=== PATIENT | male | born 1950 | race Caucasian/White ===

== ENCOUNTER 2017-02-12 09:22 | Emergency (ER) | payer MEDICARE, OTHER, MEDICAID ==
[2017-02-12 09:29] VITALS: BP 149/79
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
[2017-02-12] MEDS ORDERED: Diphtheria,Pertussis(Acell),Tetanus Vaccine 0.5 ML SDV IM ONE (10:56)
== END 2017-02-12 11:55 | disposition home or self-care (01) ==
LOC: LL.ED 09:22
DX: S00.83XA Contusion of other part of head, initial encounter (principal); J44.9 Chronic obstructive pulmonary disease, unspecified; F41.8 Other specified anxiety disorders; M15.0 Primary generalized (osteo)arthritis; E11.9 Type 2 diabetes mellitus without complications; I11.0 Hypertensive heart disease with heart failure; M25.561 Pain in right knee; I25.10 Atherosclerotic heart disease of native coronary artery without angina pectoris; I50.9 Heart failure, unspecified; E78.00 Pure hypercholesterolemia, unspecified; J45.909 Unspecified asthma, uncomplicated; E66.9 Obesity, unspecified; Z87.891 Personal history of nicotine dependence; Z98.890 Other specified postprocedural states; Z88.8 Allergy status to other drugs, medicaments and biological substances; Z79.82 Long term (current) use of aspirin; Z79.899 Other long term (current) drug therapy; W19.XXXA Unspecified fall, initial encounter; Y92.210 Daycare center as the place of occurrence of the external cause; Z23 Encounter for immunization
CPT/HCPCS: 71020; 73090-LT; 73562-RT; 90471; 90715; 99283; 99284

== ENCOUNTER 2018-12-12 20:25 | Emergency (ER) | payer OTHER, MEDICARE, MEDICAID ==
[2018-12-12] MEDS ORDERED: Sodium Chloride 0.9% 10 ML Syringe FLUSH PRN (20:51)
[2018-12-12 21:29] LABS: CHLORIDE,CL 105 mmol/L (98-107); SODIUM,NA 139 mmol/L (136-145)
[2018-12-12] MEDS ORDERED: Iopamidol 755 Mg/ML 100 ML Bottle IVPUSH ONE (22:06)
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
[2018-12-13 00:47] VITALS: BP 161/76
== END 2018-12-13 01:15 ==
LOC: LL.ED 20:25
DX: R06.02 Shortness of breath (principal); R14.0 Abdominal distension (gaseous); R60.0 Localized edema; R63.5 Abnormal weight gain; I25.10 Atherosclerotic heart disease of native coronary artery without angina pectoris; E78.00 Pure hypercholesterolemia, unspecified; I50.9 Heart failure, unspecified; J44.9 Chronic obstructive pulmonary disease, unspecified; Z79.82 Long term (current) use of aspirin; Z79.899 Other long term (current) drug therapy; Z79.4 Long term (current) use of insulin
CPT/HCPCS: 36000; 36415; 71046; 71275; 74019; 80053; 82550; 82553; 83605; 83735; 83880; 84443; 84484; 85025; 85379; 85610; 85730; 93005; 99285; Q9967

== ENCOUNTER 2018-12-27 21:44 | Emergency (ER) | payer MEDICARE, OTHER, MEDICAID ==
[2018-12-27] MEDS ORDERED: Pantoprazole 40 MG Vial IVPUSH ONE (22:11)
[2018-12-27] MEDS ORDERED: Famotidine 20 MG/2 ML SDV IVPUSH ONE (22:11)
[2018-12-27] MEDS ORDERED: Lactated Ringers 1,000 ML IV ONE (22:11)
--- NOTE | 2018-12-27 22:22 | EDM.PDOC ---
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 4,000 units 12/27/18 23:30 12/27/18 23:36 Heparin Sodium IVPUSH 12/27/18 23:31 4,000 units ONETIME ONE Administration Pantoprazole Sodium 40 mg 12/27/18 22:11 12/27/18 22:50 Protonix Iv IVPUSH 12/27/18 22:12 40 mg ONETIME ONE Administration Ticagrelor 180 mg 12/27/18 23:30 12/27/18 23:36 Brilinta PO 12/27/18 23:31 180 mg ONETIME ONE Administration - Radiology Interpretation Free Text/Narrative:: 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 Acute abdominal x-rays shows status post lumbar fixation and TENS unit placement with moderate osteoarthritic changes, moderate cardiomegaly, moderate COPD, mild centralized CHF and status post left hip TEP with no pulmonary infiltrates, pneumothorax, etc. Moderate diffuse stool with no fluid levels, free air, ileus, or obstruction Telephone consultation at 23:30 hours with the radiology department at with preliminary report of CT of the head without contrast. No acute changes noted. CT Results Date: 12/27/18 CT Results Time: 23:30 Departure - Departure Time of Disposition: 01:05 Disposition: DC/Tfer to Acute Hospital 02 Condition: Fair Clinical Impression: Mixed anxiety depressive disorder, HTN, Benign hypertension, COPD, Moderate chronic obstructive pulmonary disease, D-dimer, elevated Osteoarthritis Qualifiers: Osteoarthritis location: multiple joints Osteoarthritis type: primary Qualified Code(s): M15.0 - Primary generalized (osteo)arthritis Diabetes mellitus Qualifiers: Diabetes mellitus type: type 2 Diabetes mellitus manager intermediate insulin use: without [place] [facility] use Diabetes mellitus complication status: without complication Qualified Code(s): E11.9 - Type 2 diabetes mellitus without complications Hypertension Qualifiers: Hypertension type: essential hypertension Qualified Code(s): I10 - Essential ( primary) hypertension Atrial fibrillation Qualifiers: Atrial fibrillation type: unspecified Qualified Code(s): I48.91 - Unspecified atrial fibrillation CHF (congestive heart failure) Qualifiers: Heart failure type: combined systolic and diastolic Heart failure chronicity: acute on chronic Qualified Code(s): I50.43 - Acute on chronic combined systolic (congestive) and diastolic (congestive) heart failure Renal failure, acute Qualifiers: Acute renal failure type: unspecified Qualified Code(s): N17.9 - Acute kidney failure, unspecified - Discharge Information *PRESCRIPTION DRUG MONITORING PROGRAM REVIEWED*: Not Applicable *COPY OF PRESCRIPTION DRUG MONITORING REPORT IN PATIENT YOLANDA: Not Applicable Referrals: Margret Marshall PA-C [Primary Care Provider] - Forms: ED Department Discharge, Interfacility Transfer EMTALA - Problem List & Annotations (1) CHF (congestive heart failure) SNOMED Code(s): 91113155 Code(s): I50.9 - HEART FAILURE, UNSPECIFIED Status: Acute Priority: High Current Visit: Yes Onset Date: 12/27/18 Annotation/Comment:: Exacerbation of his previous chronic CHF with current renal failure. No chest pain or anginal type symptoms. Chest pain protocol not initiated initially secondary to absence of anginal symptoms, however ASA, Brilinta, and IV heparin under non-STEMI protocol initiated once blood work results were obtained. Telephone consultation at 23:[address] Pearson, hospitalist at , who does accept the patient for direct admission, with no further treatment recommendations given. Ambulance transfer with corporate officer accompaniment. Note troponin I elevation and BNP elevation with recent echocardiogram on 12/13/18 as above. Probable cardiology consultation for possible acute AL. Consider heart catheterization once his renal status has improved. High-dose IV Lasix therapy was given in the emergency room. Note mild thrombocytopenia. Qualifiers: Heart failure type: combined systolic and diastolic Heart failure chronicity: acute on chronic Qualified Code(s): I50.43 - Acute on chronic combined systolic (congestive) and diastolic (congestive) heart failure (2) Atrial fibrillation SNOMED Code(s): 20208866 Code(s): I48.91 - UNSPECIFIED ATRIAL FIBRILLATION Status: Acute Priority : High Current Visit: Yes Onset Date: 12/27/18 Annotation/Comment:: Newly diagnosed with history of recent first-degree AV block, PVCs, and bifascicular bundle branch block. IV heparin started as above. Qualifiers: Atrial fibrillation type: unspecified Qualified Code(s): I48.91 - Unspecified atrial fibrillation (3) Renal failure, acute SNOMED Code(s): 62026429 Code(s): N17.9 - ACUTE KIDNEY FAILURE, UNSPECIFIED Status: Acute Priority : High Current Visit: Yes Onset Date: 12/28/18 Annotation/Comment:: History of diabetic nephropathy with recent hospitalization at [facility] as above. Acute renal failure at this time. Consider nephrology consultation. Qualifiers: Acute renal failure type: unspecified Qualified Code(s): N17.9 - Acute kidney failure, unspecified (4) COPD, Moderate chronic obstructive pulmonary disease SNOMED Code(s): 793611476 Code(s): J44.9 - CHRONIC OBSTRUCTIVE PULMONARY DISEASE, UNSPECIFIED Status : Chronic Priority: Medium Current Visit: Yes Annotation/Comment:: Stable by history with no recent history of fever, however mild recent URI and bronchitic-type symptoms. (5) Diabetes mellitus type 2 SNOMED Code(s): 07962691 Code(s): E11.9 - TYPE 2 DIABETES MELLITUS WITHOUT COMPLICATIONS Status: Chronic Priority: Medium Current Visit: Yes Annotation/Comment:: Stable by history, however note progressive renal insufficiency and acute renal failure as above, however. Recent glycosylated hemoglobin at [facility] in the 8s. (6) Osteoarthritis SNOMED Code(s): 721283969 Code(s): M19.90 - UNSPECIFIED OSTEOARTHRITIS, UNSPECIFIED SITE Status: Chronic Priority: Medium Current Visit: Yes Annotation/Comment:: His osteoarthritis and chronic low back pain are otherwise stable by history with current disability as above Qualifiers: Osteoarthritis location: multiple joints Osteoarthritis type: primary Qualified Code(s): M15.0 - Primary generalized (osteo)arthritis (7) Hypertension SNOMED Code(s): 98304520 Code(s): I10 - ESSENTIAL (PRIMARY) HYPERTENSION Status: Chronic Priority : Medium Current Visit: Yes Annotation/Comment:: Variable blood pressure in the emergency room. Continue to observe closely by his accepting and regular providers Qualifiers: Hypertension type: essential hypertension Qualified Code(s): I10 - Essential (primary) hypertension (8) Mixed anxiety depressive disorder SNOMED Code(s): 794646564 Code(s): F41.8 - OTHER SPECIFIED ANXIETY DISORDERS Status: Chronic Priority: Medium Current Visit: No Annotation/Comment:: Stable by history. Note chronic narcotic use secondary to his chronic low back pain with current renal failure and confusion. (9) D-dimer, elevated SNOMED Code(s): 864938704 Code(s): R79.89 - OTHER SPECIFIED ABNORMAL FINDINGS OF BLOOD CHEMISTRY Status: Chronic Priority: High Current Visit: Yes Onset Date: 12/12/18 Annotation/Comment:: Note persistent d-dimer elevation after recent diagnosis on 12/12/18 with negative CTA of the chest. Consider venous Doppler studies of the lower extremities. - Problem List Review Problem List Initiated/Reviewed/Updated: Yes - My Orders Last 24 Hours: My Active Orders 12/27/18 22:11 Peripheral IV Care [RC] . DIRECTED Abdomen Series w Chest 1V [CR] Stat CULTURE URINE [RM] Stat UA W/MICROSCOPIC [URIN] Stat Sodium Chloride 0.9% [Saline Flush] 10 ml FLUSH ASDIRECTED PRN Blood Culture x2 Reflex Set [OM.PC] Urgent Obtain Past Medical Record [OM.PC] Urgent Peripheral IV Insertion Adult [OM.PC] Stat Resuscitation Status Stat 12/27/18 22:15 EKG Documentation Completion [RC] ASDIRECTED 12/27/18 22:20 CULTURE STREP A CONFIRMATION [RM] Stat STREP SCRN A RAPID W CULT CONF [RM] Stat 12/27/18 22:35 CULTURE BLOOD [BC] Stat 12/27/18 22:40 CULTURE BLOOD [BC] Stat 12/27/18 22:50 Head wo Cont [CT] Stat 12/27/18 23:45 Heparin Sodium/D5W [Heparin 25,000 Units in D5W 500 ML] 25,000 units in 500 ml IV TITRATE 12/27/18 Breakfast Nothing Per Oral Diet [DIET] - Assessment/Plan Last 24 Hours: My Active Orders 12/27/18 22:11 Peripheral IV Care [RC] . DIRECTED Abdomen Series w Chest 1V [CR] Stat CULTURE URINE [RM] Stat UA W/MICROSCOPIC [URIN] Stat Sodium Chloride 0.9% [Saline Flush] 10 ml FLUSH ASDIRECTED PRN Blood Culture x2 Reflex Set [OM.PC] Urgent Obtain Past Medical Record [OM.PC] Urgent Peripheral IV Insertion Adult [OM.PC] Stat Resuscitation Status Stat 12/27/18 22:15 EKG Documentation Completion [RC] ASDIRECTED 12/27/18 22:20 CULTURE STREP A CONFIRMATION [RM] Stat STREP SCRN A RAPID W CULT CONF [RM] Stat 12/27/18 22:35 CULTURE BLOOD [BC] Stat 12/27/18 22:40 CULTURE BLOOD [BC] Stat 12/27/18 22:50 Head wo Cont [CT] Stat 12/27/18 23:45 Heparin Sodium/D5W [Heparin 25,000 Units in D5W 500 ML] 25,000 units in 500 ml IV TITRATE 12/27/18 Breakfast Nothing Per Oral Diet [DIET] Assessment:: As above Plan: As above. Extensive precautions were given to the patient and his , who are in agreement with the treatment plan. Ambulance transfer to [place] with corporate officer accompaniment as above.
[2018-12-27] MEDS: Sodium Chloride 0.9% 10 ML Syringe FLUSH PRN ×2 (22:50→23:38)
[2018-12-27 23:27] LABS: CHLORIDE,CL 98 mmol/L (98-107); SODIUM,NA 135 mmol/L (136-145)
[2018-12-27] MEDS ORDERED: Heparin Sodium 5,000 Units/ML Vial IVPUSH ONE (23:30)
[2018-12-27] MEDS ORDERED: Ticagrelor 90 MG Tab PO ONE (23:30)
[2018-12-27] MEDS ORDERED: Aspirin 81 MG Tab.Chew CHEW ONE (23:30)
[2018-12-27] MEDS ORDERED: Furosemide 40 MG/4 ML VIAL IVPUSH ONE (23:35)
[2018-12-27] MEDS ORDERED: Heparin Sodium/D5W 25,000 UNITS/500 ML BAG IV SCH (23:45)
[2018-12-28 00:53] VITALS: BP 98/43
== END 2018-12-28 01:05 ==
LOC: LL.ED 21:44
DX: N17.9 Acute kidney failure, unspecified (principal); I11.0 Hypertensive heart disease with heart failure; I50.9 Heart failure, unspecified; F41.8 Other specified anxiety disorders; J44.9 Chronic obstructive pulmonary disease, unspecified; M15.0 Primary generalized (osteo)arthritis; E11.9 Type 2 diabetes mellitus without complications; I48.91 Unspecified atrial fibrillation; R79.89 Other specified abnormal findings of blood chemistry; Z87.891 Personal history of nicotine dependence; Z79.84 Long term (current) use of oral hypoglycemic drugs; Z79.82 Long term (current) use of aspirin; Z79.899 Other long term (current) drug therapy; Z88.8 Allergy status to other drugs, medicaments and biological substances
CPT/HCPCS: 36415; 70450; 74022; 80053; 82140; 82150; 82550; 82553; 83605; 83690; 83735; 83880; 84443; 84484; 84550; 85025; 85379; 85610; 85730; 87040; 87081; 87430; 87804; 93005; 93010; 96365; 96375; 99284; 99285; A9270-GY; C9113; G0480; J1644; J1940; J3490

== ENCOUNTER 2019-04-18 12:15 | Inpatient (IN) | payer MEDICARE, OTHER, MEDICAID ==
[2019-04-18] MEDS ORDERED: Famotidine 20 MG/2 ML SDV IVPUSH ONE (12:29)
--- NOTE | 2019-04-18 12:29 | EDM.PDOC ---
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 [place] (1.005-1.030) Urine Protein (NEGATIVE) mg/dL Urine Glucose (UA) (NEGATIVE) mg/dL Urine Ketones (NEGATIVE) mg/dL Urine Occult Blood (NEGATIVE) Urine Nitrite (NEGATIVE) Urine Bilirubin (NEGATIVE) Urine Urobilinogen (0.2-1.0) E.U./dL Ur Leukocyte Esterase (NEGATIVE) Urine RBC /HPF Urine WBC /HPF Ur Epithelial Cells /LPF Urine Bacteria (NONE TO FEW) /HPF Meds: Medications Generic Name Dose Route Start Last Admin Trade Name Freq PRN Reason Stop Dose Admin Sodium Chloride 10 ml 04/18/19 12:29 04/18/19 14:58 Saline Flush FLUSH 10 ml ASDIRECTED PRN Administration Keep Vein Open Discontinued Medications Generic Name Dose Route Start Last Admin Trade Name Freq PRN Reason Stop Dose Admin Famotidine 40 mg 04/18/19 12:29 04/18/19 14:15 Pepcid IVPUSH 04/18/19 12:30 40 mg ONETIME ONE Administration Furosemide 60 mg 04/18/19 13:34 04/18/19 14:57 Lasix IVPUSH 04/18/19 13:35 60 mg NOW ONE Administration Insulin Human Regular 10 unit 04/18/19 13:34 04/18/19 14:54 Humulin R IV 04/18/19 13:35 10 unit ONETIME ONE Administration - Radiology Interpretation Free Text/Narrative:: air sampling and monitoring shows 100% normal paced rhythm at 60 to 70s with no extrasystoles or other arrhythmia. Chest x-ray, portable, shows moderate COPD, cardiomegaly, prominence of the aortic arch, and centralized CHF with additional pacemaker noted. No pulmonary infiltrates, pneumothorax, etc. Departure - Departure Time of Disposition: 15:20 Disposition: Admitted As Inpatient 67 Condition: Good Clinical Impression: COPD, Moderate chronic obstructive pulmonary disease, Diabetes mellitus type 2 , D-dimer, elevated, Mixed anxiety depressive disorder, Confusion CHF (congestive heart failure) Qualifiers: Heart failure type: combined systolic and diastolic Heart failure chronicity: acute on chronic Qualified Code(s): I50.43 - Acute on chronic combined systolic (congestive) and diastolic (congestive) heart failure Osteoarthritis Qualifiers: Osteoarthritis location: multiple joints Osteoarthritis type: primary Qualified Code(s): M15.0 - Primary generalized (osteo)arthritis Hypertension Qualifiers: Hypertension type: essential hypertension Qualified Code(s): I10 - Essential ( primary) hypertension Sleep apnea Qualifiers: Sleep apnea type: unspecified type Qualified Code(s): G47.30 - Sleep apnea, unspecified - Discharge Information - Problem List & Annotations (1) Diabetes mellitus SNOMED Code(s): 44314084 Code(s): E11.9 - TYPE 2 DIABETES MELLITUS WITHOUT COMPLICATIONS Status: Acute Priority: High Current Visit: Yes Annotation/Comment:: Patient did require insulin therapy in the past with significant hyperglycemia today. IV Humulin regular insulin initiated in the emergency room. Initiate diabetic teaching during this hospitalization. Glycosylated hemoglobin and lipid panel in the a.m. Weight loss in moderation is still advisable with patient having regained some of his previous weight loss. 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 Diabetes mellitus complication status: with kidney complications Diabetes mellitus complication detail: with chronic kidney disease Chronic kidney disease stage: stage 3 (moderate) Qualified Code(s): E11.22 - Type 2 diabetes mellitus with diabetic chronic kidney disease; N18.3 - Chronic kidney disease, stage 3 (moderate) (2) Osteoarthritis SNOMED Code(s): 735220398 Code(s): M19.90 - UNSPECIFIED OSTEOARTHRITIS, UNSPECIFIED SITE Status: Chronic Priority: Medium Current Visit: Yes Annotation/Comment:: His osteoarthritis, including chronic bilateral shoulder pain and chronic low back pain, are stable by history with current disability as above Qualifiers: Osteoarthritis location: multiple joints Osteoarthritis type: primary Qualified Code(s): M15.0 - Primary generalized (osteo)arthritis (3) Hypertension SNOMED Code(s): 06471775 Code(s): I10 - ESSENTIAL (PRIMARY) HYPERTENSION Status: Chronic Priority : Medium Current Visit: Yes Annotation/Comment:: Blood Pressures under good control in the emergency room. Continue to observe closely during this hospitalization with IV Lasix therapy initiated in the emergency room. Qualifiers: Hypertension type: essential hypertension Qualified Code(s): I10 - Essential (primary) hypertension (4) Mixed anxiety depressive disorder SNOMED Code(s): 198567784 Code(s): F41.8 - OTHER SPECIFIED ANXIETY DISORDERS Status: Chronic Priority: Medium Current Visit: No Annotation/Comment:: Stable by history. Note chronic narcotic use secondary to his chronic low back pain with nonspecific chronic confusion. Continue to observe closely. Note recent ER evaluation and negative CT scan of the head on 12/27/18. (5) CHF (congestive heart failure) SNOMED Code(s): 53608899 Code(s): I50.9 - HEART FAILURE, UNSPECIFIED Status: Acute Priority: High Current Visit: Yes Onset Date: 12/27/18 Annotation/Comment:: Patient has been noncompliant with his Lasix therapy secondary to increased urinary frequency with patient decreasing his dose on his own to 1 tablet by mouth twice a day rather than 2 tablets by mouth twice a day. No chest pain or anginal type symptoms, however initiate standard rule out [place] orders. Note recent pacemaker placement as above. Patient has also had a recent echocardiogram on 12/13/18. Cardiology consultation depending on his clinical course. IV Lasix therapy initiated in the emergency room with medication compliance strongly encouraged. Note mild hyponatremia and LFTs elevation likely secondary to CHF. Qualifiers: Heart failure type: combined systolic and diastolic Heart failure chronicity: acute on chronic Qualified Code(s): I50.43 - Acute on chronic combined systolic (congestive) and diastolic (congestive) heart failure (6) D-dimer, elevated SNOMED Code(s): 799083250 Code(s): R79.89 - OTHER SPECIFIED ABNORMAL FINDINGS OF BLOOD CHEMISTRY Status: Chronic Priority: High Current Visit: Yes Onset Date: 12/12/18 Annotation/Comment:: Note persistent d-dimer elevation after recent diagnosis on 12/12/18 with negative CTA of the chest. Recent negative right leg venous Doppler studies on 02/04/19 as above. (7) Confusion SNOMED Code(s): 337452862 Code(s): R41.0 - DISORIENTATION, UNSPECIFIED Status: Chronic Priority: Medium Current Visit: Yes Annotation/Comment:: Continue observe closely. Chronic in nature. Vitamin B 12 level in the a.m. Note previous negative CT scan of the head on 12/27/18. He has been noncompliant with his CPAP. (8) Sleep apnea SNOMED Code(s): 60035169 Code(s): G47.30 - SLEEP APNEA, UNSPECIFIED Status: Chronic Priority: High Current Visit: Yes Annotation/Comment:: CPAP therapy with his new mask , which he has not yet tried at home, during this hospitalization. Compliance with CPAP therapy strongly encouraged. Further consultation depending on his clinical course. Qualifiers: Sleep apnea type: unspecified type Qualified Code(s): G47.30 - Sleep apnea , unspecified (9) Comfort measures only status SNOMED Code(s): 59263008988926 Code(s): Z51.5 - ENCOUNTER FOR PALLIATIVE CARE Status: Chronic Priority: Medium Current Visit: Yes Onset Date: 04/18/19 Annotation/Comment:: He is requesting comfort/palliative care status at this time. Transfers okay. - Problem List Review Problem List Initiated/Reviewed/Updated: Yes - My Orders Last 24 Hours: My Active Orders 04/18/19 12:15 CULTURE URINE [RM] Routine 04/18/19 12:29 Cardiac Monitoring [RC] . DIRECTED EKG Documentation Completion [RC] ASDIRECTED Oxygen Therapy, ED [RC] PRN Peripheral IV Care [RC] . DIRECTED Pulse Oximetry [RC] CONTINUOUS Up With Assistance [RC] PFP Vital Signs [RC] PFP Chest 1V Frontal [CR] Stat Sodium Chloride 0.9% [Saline Flush] 10 ml FLUSH ASDIRECTED PRN Obtain Past Medical Record [OM.PC] Urgent Peripheral IV Insertion Adult [OM.PC] Stat Resuscitation Status Stat 04/18/19 Breakfast Nothing per Oral Now Diet [DIET] - Assessment/Plan Admission H&P: Please use this note as an admission H&P Last 24 Hours: My Active Orders 04/18/19 12:15 CULTURE URINE [RM] Routine 04/18/19 12:29 Cardiac Monitoring [RC] . DIRECTED EKG Documentation Completion [RC] ASDIRECTED Oxygen Therapy, ED [RC] PRN Peripheral IV Care [RC] . DIRECTED Pulse Oximetry [RC] CONTINUOUS Up With Assistance [RC] PFP Vital Signs [RC] PFP Chest 1V Frontal [CR] Stat Sodium Chloride 0.9% [Saline Flush] 10 ml FLUSH ASDIRECTED PRN Obtain Past Medical Record [OM.PC] Urgent Peripheral IV Insertion Adult [OM.PC] Stat Resuscitation Status Stat 04/18/19 Breakfast Nothing per Oral Now Diet [DIET] Assessment:: As above Plan: As above. Extensive precautions were given to the patient, who is in agreement with the treatment plan. The patient will require about 3-4 days of inpatient/ acute care secondary to multiple health problems as above.
[2019-04-18 13:17] LABS: CHLORIDE,CL 97 mmol/L (98-107); SODIUM,NA 134 mmol/L (136-145)
[2019-04-18] MEDS ORDERED: Insulin Regular, Human 100 Units/ML 3 ML Vial IV ONE (13:34)
[2019-04-18] MEDS ORDERED: Furosemide 40 MG/4 ML VIAL IVPUSH ONE (13:34)
[2019-04-18] MEDS: Sodium Chloride 0.9% 10 ML Syringe FLUSH PRN ×2 (14:58→21:16)
[2019-04-18] MEDS ORDERED: Sodium Chloride 0.9% 10 ML Syringe FLUSH PRN (15:47)
[2019-04-18] MEDS ORDERED: Albuterol 0.083% 2.5 MG/3 ML Neb Soln INH PRN (15:52)
[2019-04-18] MEDS ORDERED: Albuterol/Ipratropium 3.0-0.5 MG/3 ML Neb Soln NEB PRN (15:52)
[2019-04-18] MEDS ORDERED: Gabapentin 300 MG Cap PO PRN (16:15)
[2019-04-18] MEDS: Potassium Chloride 20 MEQ Tab.ER PO SCH (17:24)
[2019-04-18] MEDS: metFORMIN 500 MG Tab PO SCH (17:24)
[2019-04-18] MEDS: Enoxaparin 40 MG/0.4 ML Syringe SUBCUT SCH (17:25)
[2019-04-18] MEDS: Insulin Lispro 100 Units/ML 3 ML Vial SUBCUT SCH ×2 (17:27→21:15)
[2019-04-18] MEDS ORDERED: Insulin Lispro Protamine/Lispro 75-25 100 Units/ML 10 ML Vial SUBCUT SCH (17:30)
[2019-04-18] MEDS: guaiFENesin 600 MG Tab.ER PO SCH (19:55)
[2019-04-18] MEDS: Albuterol/Ipratropium 3.0-0.5 MG/3 ML Neb Soln NEB SCH (19:55)
[2019-04-18] MEDS: Diazepam 5 MG Tab PO SCH (19:55)
[2019-04-18] MEDS: Acetaminophen 325 MG Tab PO PRN (19:55)
[2019-04-18] MEDS: Budesonide 0.5 MG/2 ML Neb Susp NEB SCH (19:55)
[2019-04-18] MEDS: Furosemide 40 MG/4 ML VIAL IVPUSH SCH (21:15)
[2019-04-19] MEDS: Albuterol/Ipratropium 3.0-0.5 MG/3 ML Neb Soln NEB SCH ×4 (03:38→20:08)
[2019-04-19] MEDS: Sodium Chloride 0.9% 10 ML Syringe FLUSH PRN ×3 (03:39→20:03)
[2019-04-19] MEDS: Furosemide 40 MG/4 ML VIAL IVPUSH SCH ×3 (03:59→20:02)
[2019-04-19] MEDS ORDERED: Insulin Lispro Protamine/Lispro 75-25 100 Units/ML 10 ML Vial SUBCUT SCH (07:30)
[2019-04-19] MEDS: Isosorbide Mononitrate 30 MG Tab.ER PO SCH (07:42)
[2019-04-19] MEDS: Pantoprazole 40 MG Tab.CR PO SCH (07:43)
[2019-04-19] MEDS: Folic Acid 1 MG Tab PO SCH (07:43)
[2019-04-19] MEDS: Losartan 50 MG Tab PO SCH (07:43)
[2019-04-19] MEDS: Finasteride 5 MG Tab PO SCH (07:43)
[2019-04-19] MEDS: Potassium Chloride 20 MEQ Tab.ER PO SCH ×3 (07:44→17:21)
[2019-04-19] MEDS: Aspirin 81 MG Tab.EC PO SCH (07:44)
[2019-04-19] MEDS: metFORMIN 500 MG Tab PO SCH ×2 (07:44→17:21)
[2019-04-19] MEDS: DULoxetine 30 MG Cap PO SCH (07:44)
[2019-04-19] MEDS: Tamsulosin 0.4 MG Cap.ER PO SCH (07:45)
[2019-04-19] MEDS: Ferrous Sulfate 325 MG Tab PO SCH (07:45)
[2019-04-19] MEDS: Metoprolol Succinate 25 MG Tab.ER PO SCH (07:45)
[2019-04-19] MEDS: Budesonide 0.5 MG/2 ML Neb Susp NEB SCH ×2 (07:46→20:00)
[2019-04-19] MEDS: Insulin Lispro 100 Units/ML 3 ML Vial SUBCUT SCH (07:48)
[2019-04-19] MEDS ORDERED: Non-Formulary Medication 1 Each (Folic Acid [Folic Acid] 0.8 MG) PO SCH (08:00)
[2019-04-19 08:34] LABS: CHLORIDE,CL 99 mmol/L (98-107); SODIUM,NA 138 mmol/L (136-145)
--- NOTE | 2019-04-19 08:41 | PCM.PN ---
- General Info Date of Service: 04/19/19 Admission Dx/Problem (Free Text): 1. Hyperglycemia with decompensated IDDM 2. CHF 3. Confusion Functional Status: Reports: Pain Controlled, Tolerating Diet, Ambulating, Urinating, Incentive Spirometry. Denies: New Symptoms Pain Score: 0 - Review of Systems General: Reports: No Symptoms. Denies: Fever, Weakness, Fatigue, Malaise, Chills, Night Sweats, Appetite (Good) HEENT: Reports: Glasses. Denies: Dysphasia, Ear Pain, Eye Pain, Headaches, Sinus Congestion, Sore Throat, Rhinitis, Visual Changes Pulmonary: Reports: No Symptoms. Denies: Shortness of Breath, Pleuritic Chest Pain, Cough, Sputum, Hemoptysis, Wheezing Cardiovascular: Reports: Orthopnea, Edema (Improved). Denies: Chest Pain, Palpitations, Dyspnea on Exertion, Lightheadedness Gastrointestinal: Reports: No Symptoms, Other (Normal bowel movement earlier this morning). Denies: Abdominal Pain, Constipation, Decreased Appetite, Diarrhea, Difficulty Swallowing, Flatus, Hematochezia, Melena, Nausea, Vomiting Genitourinary: Reports: No Symptoms. Denies: Dysuria, Frequency, Burning, Pain , Urgency, Hematuria, Retention, Flank Pain Musculoskeletal: Reports: Shoulder Pain (Stable chronic bilateral), Back Pain ( Stable chronic). Denies: Neck Pain, Arm Pain, Leg Pain, Joint Swelling Skin: Reports: Bruising (MildLovenox Sites). Denies: Diaphoresis Neurological: Reports: Confusion (Improved/resolved), Numbness (Stable chronic) , Paresthesia (Stable chronic), Tingling (Stable chronic), Tremors (Stable chronic resting tremor), Difficulty Walking (Stable with patient using left- sided cane). Denies: Dizziness (Resolved), Headache, Weakness Psychiatric: Reports: Confusion (As above). Denies: Depression, Anxiety, Agitation, Cravings, Hallucinations - Patient Data Vitals - Most Recent: Last Vital Signs Temp 36.6 C 04/19/19 08:00 Pulse 80 04/19/19 08:00 Resp 18 04/19/19 08:00 BP 148/75 H 04/19/19 08:00 Pulse Ox 95 04/19/19 08:00 Vital Signs - 24 hr 06/17/19 06/17/19 06/17/19 12:23 12:54 13:08 Temperature [ 36.9 C Oral] Temperature [ Temporal] Pulse, Peripheral Pulse, 60 62 63 Peripheral [ Right Pulse Oximetry] Respiratory 18 15 14 Rate Blood Pressure Blood Pressure 125/56 L 140/55 L [Left Upper Arm ] O2 Sat by Pulse 96 96 Oximetry 04/18/19 04/18/19 04/18/19 13:23 13:45 14:00 Temperature [ Oral] Temperature [ Temporal] Pulse, Peripheral Pulse, 65 64 63 Peripheral [ Right Pulse Oximetry] Respiratory 15 13 14 Rate Blood Pressure Blood Pressure [Left Upper Arm ] O2 Sat by Pulse 97 95 98 Oximetry 04/18/19 04/18/19 04/18/19 14:15 14:30 14:45 Temperature [ Oral] Temperature [ Temporal] Pulse, Peripheral Pulse, 66 68 67 Peripheral [ Right Pulse Oximetry] Respiratory 13 14 14 Rate Blood Pressure Blood Pressure [Left Upper Arm ] O2 Sat by Pulse 97 96 95 Oximetry 04/18/19 04/18/19 04/18/19 15:00 15:07 15:47 Temperature [ Oral] Temperature [ Temporal] Pulse, Peripheral Pulse, 67 87 Peripheral [ Right Pulse Oximetry] Respiratory 14 21 H Rate Blood Pressure Blood Pressure 121/63 [Left Upper Arm ] O2 Sat by Pulse 95 97 96 Oximetry 04/18/19 04/18/19 04/18/19 17:00 18:00 20:00 Temperature [ 36.6 C 36.8 C 36.8 C Oral] Temperature [ Temporal] Pulse, Peripheral Pulse, 61 60 60 Peripheral [ Right Pulse Oximetry] Respiratory 15 17 17 Rate Blood Pressure Blood Pressure 184/89 H 138/105 H 138/105 H [Left Upper Arm ] O2 Sat by Pulse 93 L 93 L 93 L Oximetry 04/18/19 04/19/19 04/19/19 23:57 03:45 07:42 Temperature [ 37.3 C 36.9 C Oral] Temperature [ Temporal] Pulse, Peripheral Pulse, 88 67 Peripheral [ Right Pulse Oximetry] Respiratory 18 15 Rate Blood Pressure 148/75 H Blood Pressure 102/64 123/59 L [Left Upper Arm ] O2 Sat by Pulse 93 L 96 Oximetry 04/19/19 04/19/19 04/19/19 07:43 07:45 08:00 Temperature [ Oral] Temperature [ 36.6 C Temporal] Pulse, 80 Peripheral Pulse, 80 Peripheral [ Right Pulse Oximetry] Respiratory 18 Rate Blood Pressure 148/75 H 148/75 H Blood Pressure 148/75 H [Left Upper Arm ] O2 Sat by Pulse 95 Oximetry Weight - Most Recent: 129.637 kg I&O - Last 24 Hours: Intake & Output 04/18/19 04/19/19 04/19/19 22:59 06:59 14:59 Intake Total 1340 Output Total 1350 250 Balance -10 -250 Imaging Impressions - Last 24 Hours: 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 Lab Results Last 24 Hours: Laboratory Results - last 24 hr 04/18/19 04/18/19 04/18/19 Range/Units 12:15 12:45 12:45 WBC 4.8 (4.0-10.2) K/uL RBC 4.46 (4.33-5.41) M/uL Hgb 14.8 D (13.1-16.8) g/dL Hct 43.5 (39.0-49.0) % MCV 97.5 D (84.0-98.0) fL MCH 33.2 (28.2-33.3) pg MCHC 34.0 (31.7-36.0) g/dL RDW 13.3 (11.2-14.1) % Plt Count 97 L (150-350) K/uL Neut % (Auto) 56.0 (45.0-80.0) % Lymph % (Auto) 30.0 (10.0-50.0) % [place] % (Auto) 10.7 (2.0-14.0) % Eos % (Auto) 2.9 (0.0-5.0) % Baso % (Auto) 0.4 (0.0-2.0) % Neut # (Auto) 2.66 (1.40-7.00) K/uL Lymph # (Auto) 1.43 (0.50-3.50) K/uL [place] # (Auto) 0.51 (0.00-1.00) K/uL Eos # (Auto) 0.14 (0.00-0.50) K/uL Baso # (Auto) 0.02 (0.00-0.20) K/uL PT 10.7 (9.5-12.0) SEC INR 1.0 APTT 30.2 (21.0-31.3) SEC D-Dimer, Quantitative (0-400) ng/mL Sodium (136-145) mmol/L Potassium (3.5-5.1) mmol/L Chloride (98-107) mmol/L Carbon Dioxide (21.0-32.0) mmol/L BUN (7-18) mg/dL Creatinine (0.51-1.17) mg/dL Est Cr Clr Drug Dosing Estimated GFR (MDRD) mL/min Glucose (74-106) mg/dL POC Glucose (65-110) mg/dl Hemoglobin A1c (4.3-5.7) % Lactic Acid (0.4-2.0) mmol/L Uric Acid (2.6-7.2) mg/dL Calcium (8.5-10.1) mg/dL Magnesium (1.8-2.4) mg/dL Iron (50-175) ug/dL TIBC (250-450) ug/dL % Saturation Ferritin (8-388) ng/mL Total Bilirubin (0.2-1.0) mg/dL AST (15-37) U/L ALT (12-78) U/L Alkaline Phosphatase (46-116) IU/L Creatine Kinase (26-308) U/L Creatine Kinase Index (0.0-2.5) % CK-MB (CK-2) (0.00-3.60) ng/mL Troponin I (0.000-0.056) ng/mL NT-Pro-B Natriuret Pep (0-125) pg/mL Total Protein (6.4-8.2) g/dL Albumin (3.4-5.0) g/dL TSH, Ultra Sensitive (0.358-3.740) mIU/mL Specimen Type Urinvoid Urine Color Yellow Urine Appearance Clear Urine pH 5.5 (5.0-9.0) Ur Specific Strang 1.010 (1.005-1.030) Urine Protein Negative (NEGATIVE) mg/dL Urine Glucose (UA) 500 H (NEGATIVE) mg/dL Urine Ketones Negative (NEGATIVE) mg/dL Urine Occult Blood Negative (NEGATIVE) Urine Nitrite Negative (NEGATIVE) Urine Bilirubin Negative (NEGATIVE) Urine Urobilinogen 0.2 (0.2-1.0) E.U./dL Ur Leukocyte Esterase Negative (NEGATIVE) Urine RBC Not seen /HPF Urine WBC 0-5 /HPF Ur Epithelial Cells Rare /LPF Urine Bacteria Rare (NONE TO FEW) /HPF 04/18/19 04/18/19 04/18/19 Range/Units 12:45 12:45 12:45 WBC (4.0-10.2) K/uL RBC (4.33-5.41) M/uL Hgb (13.1-16.8) g/dL Hct (39.0-49.0) % MCV (84.0-98.0) fL MCH (28.2-33.3) pg MCHC (31.7-36.0) g/dL RDW (11.2-14.1) % Plt Count (150-350) K/uL Neut % (Auto) (45.0-80.0) % Lymph % (Auto) (10.0-50.0) % [place] % (Auto) (2.0-14.0) % Eos % (Auto) (0.0-5.0) % Baso % (Auto) (0.0-2.0) % Neut # (Auto) (1.40-7.00) K/uL Lymph # (Auto) (0.50-3.50) K/uL [place] # (Auto) (0.00-1.00) K/uL Eos # (Auto) (0.00-0.50) K/uL Baso # (Auto) (0.00-0.20) K/uL PT (9.5-12.0) SEC INR APTT (21.0-31.3) SEC D-Dimer, Quantitative 800 H (0-400) ng/mL Sodium 134 L (136-145) mmol/L Potassium 4.3 (3.5-5.1) mmol/L Chloride 97 L (98-107) mmol/L Carbon Dioxide 29.8 (21.0-32.0) mmol/L BUN 13 (7-18) mg/dL Creatinine 0.90 (0.51-1.17) mg/dL Est Cr Clr Drug Dosing TNP Estimated GFR (MDRD) > 60 mL/min Glucose 485 H* (74-106) mg/dL POC Glucose (65-110) mg/dl Hemoglobin A1c (4.3-5.7) % Lactic Acid 1.8 (0.4-2.0) mmol/L Uric Acid 3.0 (2.6-7.2) mg/dL Calcium 9.0 (8.5-10.1) mg/dL Magnesium 1.9 (1.8-2.4) mg/dL Iron (50-175) ug/dL TIBC (250-450) ug/dL % Saturation Ferritin (8-388) ng/mL Total Bilirubin 0.5 (0.2-1.0) mg/dL AST 47 H (15-37) U/L ALT 83 H (12-78) U/L Alkaline Phosphatase 216 H (46-116) IU/L Creatine Kinase 138 (26-308) U/L Creatine Kinase Index 1.4 (0.0-2.5) % CK-MB (CK-2) 2.00 (0.00-3.60) ng/mL Troponin I 0.002 (0.000-0.056) ng/mL NT-Pro-B Natriuret Pep 137 H (0-125) pg/mL Total Protein 7.8 (6.4-8.2) g/dL Albumin 3.4 (3.4-5.0) g/dL TSH, Ultra Sensitive 1.853 (0.358-3.740) mIU/mL Specimen Type Urine Color Urine Appearance Urine pH (5.0-9.0) Ur Specific Strang (1.005-1.030) Urine Protein (NEGATIVE) mg/dL Urine Glucose (UA) (NEGATIVE) mg/dL Urine Ketones (NEGATIVE) mg/dL Urine Occult Blood (NEGATIVE) Urine Nitrite (NEGATIVE) Urine Bilirubin (NEGATIVE) Urine Urobilinogen (0.2-1.0) E.U./dL Ur Leukocyte Esterase (NEGATIVE) Urine RBC /HPF Urine WBC /HPF Ur Epithelial Cells /LPF Urine Bacteria (NONE TO FEW) /HPF 04/18/19 04/18/19 04/18/19 Range/Units 17:06 21:00 21:05 WBC (4.0-10.2) K/uL RBC (4.33-5.41) M/uL Hgb (13.1-16.8) g/dL Hct (39.0-49.0) % MCV (84.0-98.0) fL MCH (28.2-33.3) pg MCHC (31.7-36.0) g/dL RDW (11.2-14.1) % Plt Count (150-350) K/uL Neut % (Auto) (45.0-80.0) % Lymph % (Auto) (10.0-50.0) % [place] % (Auto) (2.0-14.0) % Eos % (Auto) (0.0-5.0) % Baso % (Auto) (0.0-2.0) % Neut # (Auto) (1.40-7.00) K/uL Lymph # (Auto) (0.50-3.50) K/uL [place] # (Auto) (0.00-1.00) K/uL Eos # (Auto) (0.00-0.50) K/uL Baso # (Auto) (0.00-0.20) K/uL PT (9.5-12.0) SEC INR APTT (21.0-31.3) SEC D-Dimer, Quantitative (0-400) ng/mL Sodium (136-145) mmol/L Potassium (3.5-5.1) mmol/L Chloride (98-107) mmol/L Carbon Dioxide (21.0-32.0) mmol/L BUN (7-18) mg/dL Creatinine (0.51-1.17) mg/dL Est Cr Clr Drug Dosing Estimated GFR (MDRD) mL/min Glucose (74-106) mg/dL POC Glucose 394 H* 360 H* (65-110) mg/dl Hemoglobin A1c (4.3-5.7) % Lactic Acid (0.4-2.0) mmol/L Uric Acid (2.6-7.2) mg/dL Calcium (8.5-10.1) mg/dL Magnesium (1.8-2.4) mg/dL Iron (50-175) ug/dL TIBC (250-450) ug/dL % Saturation Ferritin (8-388) ng/mL Total Bilirubin (0.2-1.0) mg/dL AST (15-37) U/L ALT (12-78) U/L Alkaline Phosphatase (46-116) IU/L Creatine Kinase 106 (26-308) U/L Creatine Kinase Index 1.4 (0.0-2.5) % CK-MB (CK-2) 1.50 (0.00-3.60) ng/mL Troponin I 0.002 (0.000-0.056) ng/mL NT-Pro-B Natriuret Pep (0-125) pg/mL Total Protein (6.4-8.2) g/dL Albumin (3.4-5.0) g/dL TSH, Ultra Sensitive (0.358-3.740) mIU/mL Specimen Type Urine Color Urine Appearance Urine pH (5.0-9.0) Ur Specific Strang (1.005-1.030) Urine Protein (NEGATIVE) mg/dL Urine Glucose (UA) (NEGATIVE) mg/dL Urine Ketones (NEGATIVE) mg/dL Urine Occult Blood (NEGATIVE) Urine Nitrite (NEGATIVE) Urine Bilirubin (NEGATIVE) Urine Urobilinogen (0.2-1.0) E.U./dL Ur Leukocyte Esterase (NEGATIVE) Urine RBC /HPF Urine WBC /HPF Ur Epithelial Cells /LPF Urine Bacteria (NONE TO FEW) /HPF 04/19/19 04/19/19 04/19/19 Range/Units 03:43 07:00 07:00 WBC 5.6 (4.0-10.2) K/uL RBC 4.58 (4.33-5.41) M/uL Hgb 15.2 (13.1-16.8) g/dL Hct 43.5 (39.0-49.0) % MCV 95.0 (84.0-98.0) fL MCH 33.2 (28.2-33.3) pg MCHC 34.9 (31.7-36.0) g/dL RDW 13.1 (11.2-14.1) % Plt Count 98 L (150-350) K/uL Neut % (Auto) 56.1 (45.0-80.0) % Lymph % (Auto) 30.0 (10.0-50.0) % [place] % (Auto) 11.5 (2.0-14.0) % Eos % (Auto) 2.0 (0.0-5.0) % Baso % (Auto) 0.4 (0.0-2.0) % Neut # (Auto) 3.13 (1.40-7.00) K/uL Lymph # (Auto) 1.67 (0.50-3.50) K/uL [place] # (Auto) 0.64 (0.00-1.00) K/uL Eos # (Auto) 0.11 (0.00-0.50) K/uL Baso # (Auto) 0.02 (0.00-0.20) K/uL PT (9.5-12.0) SEC INR APTT (21.0-31.3) SEC D-Dimer, Quantitative 553 H (0-400) ng/mL Sodium (136-145) mmol/L Potassium (3.5-5.1) mmol/L Chloride (98-107) mmol/L Carbon Dioxide (21.0-32.0) mmol/L BUN (7-18) mg/dL Creatinine (0.51-1.17) mg/dL Est Cr Clr Drug Dosing Estimated GFR (MDRD) mL/min Glucose (74-106) mg/dL POC Glucose 213 H (65-110) mg/dl Hemoglobin A1c (4.3-5.7) % Lactic Acid (0.4-2.0) mmol/L Uric Acid (2.6-7.2) mg/dL Calcium (8.5-10.1) mg/dL Magnesium (1.8-2.4) mg/dL Iron (50-175) ug/dL TIBC (250-450) ug/dL % Saturation Ferritin (8-388) ng/mL Total Bilirubin (0.2-1.0) mg/dL AST (15-37) U/L ALT (12-78) U/L Alkaline Phosphatase (46-116) IU/L Creatine Kinase (26-308) U/L Creatine Kinase Index (0.0-2.5) % CK-MB (CK-2) (0.00-3.60) ng/mL Troponin I (0.000-0.056) ng/mL NT-Pro-B Natriuret Pep (0-125) pg/mL Total Protein (6.4-8.2) g/dL Albumin (3.4-5.0) g/dL TSH, Ultra Sensitive (0.358-3.740) mIU/mL Specimen Type Urine Color Urine Appearance Urine pH (5.0-9.0) Ur Specific Strang (1.005-1.030) Urine Protein (NEGATIVE) mg/dL Urine Glucose (UA) (NEGATIVE) mg/dL Urine Ketones (NEGATIVE) mg/dL Urine Occult Blood (NEGATIVE) Urine Nitrite (NEGATIVE) Urine Bilirubin (NEGATIVE) Urine Urobilinogen (0.2-1.0) E.U./dL Ur Leukocyte Esterase (NEGATIVE) Urine RBC /HPF Urine WBC /HPF Ur Epithelial Cells /LPF Urine Bacteria (NONE TO FEW) /HPF 04/19/19 04/19/19 04/19/19 Range/Units 07:00 07:00 07:02 WBC (4.0-10.2) K/uL RBC (4.33-5.41) M/uL Hgb (13.1-16.8) g/dL Hct (39.0-49.0) % MCV (84.0-98.0) fL MCH (28.2-33.3) pg MCHC (31.7-36.0) g/dL RDW (11.2-14.1) % Plt Count (150-350) K/uL Neut % (Auto) (45.0-80.0) % Lymph % (Auto) (10.0-50.0) % [place] % (Auto) (2.0-14.0) % Eos % (Auto) (0.0-5.0) % Baso % (Auto) (0.0-2.0) % Neut # (Auto) (1.40-7.00) K/uL Lymph # (Auto) (0.50-3.50) K/uL [place] # (Auto) (0.00-1.00) K/uL Eos # (Auto) (0.00-0.50) K/uL Baso # (Auto) (0.00-0.20) K/uL PT (9.5-12.0) SEC INR APTT (21.0-31.3) SEC D-Dimer, Quantitative (0-400) ng/mL Sodium (136-145) mmol/L Potassium (3.5-5.1) mmol/L Chloride (98-107) mmol/L Carbon Dioxide (21.0-32.0) mmol/L BUN (7-18) mg/dL Creatinine (0.51-1.17) mg/dL Est Cr Clr Drug Dosing Estimated GFR (MDRD) mL/min Glucose (74-106) mg/dL POC Glucose 236 H (65-110) mg/dl Hemoglobin A1c 13.0 H (4.3-5.7) % Lactic Acid (0.4-2.0) mmol/L Uric Acid (2.6-7.2) mg/dL Calcium (8.5-10.1) mg/dL Magnesium (1.8-2.4) mg/dL Iron 79 (50-175) ug/dL TIBC 371 (250-450) ug/dL % Saturation 21.293 Ferritin 72 (8-388) ng/mL Total Bilirubin (0.2-1.0) mg/dL AST (15-37) U/L ALT (12-78) U/L Alkaline Phosphatase (46-116) IU/L Creatine Kinase (26-308) U/L Creatine Kinase Index (0.0-2.5) % CK-MB (CK-2) (0.00-3.60) ng/mL Troponin I (0.000-0.056) ng/mL NT-Pro-B Natriuret Pep (0-125) pg/mL Total Protein (6.4-8.2) g/dL Albumin (3.4-5.0) g/dL TSH, Ultra Sensitive (0.358-3.740) mIU/mL Specimen Type Urine Color Urine Appearance Urine pH (5.0-9.0) Ur Specific Strang (1.005-1.030) Urine Protein (NEGATIVE) mg/dL Urine Glucose (UA) (NEGATIVE) mg/dL Urine Ketones (NEGATIVE) mg/dL Urine Occult Blood (NEGATIVE) Urine Nitrite (NEGATIVE) Urine Bilirubin (NEGATIVE) Urine Urobilinogen (0.2-1.0) E.U./dL Ur Leukocyte Esterase (NEGATIVE) Urine RBC /HPF Urine WBC /HPF Ur Epithelial Cells /LPF Urine Bacteria (NONE TO FEW) /HPF Laboratory Tests 04/18/19 04/18/19 04/18/19 Range/Units 12:15 12:45 12:45 WBC 4.8 (4.0-10.2) K/uL RBC 4.46 (4.33-5.41) M/uL Hgb 14.8 D (13.1-16.8) g/dL Hct 43.5 (39.0-49.0) % MCV 97.5 D (84.0-98.0) fL MCH 33.2 (28.2-33.3) pg MCHC 34.0 (31.7-36.0) g/dL RDW 13.3 (11.2-14.1) % Plt Count 97 L (150-350) K/uL Neut % (Auto) 56.0 (45.0-80.0) % Lymph % (Auto) 30.0 (10.0-50.0) % [place] % (Auto) 10.7 (2.0-14.0) % Eos % (Auto) 2.9 (0.0-5.0) % Baso % (Auto) 0.4 (0.0-2.0) % Neut # (Auto) 2.66 (1.40-7.00) K/uL Lymph # (Auto) 1.43 (0.50-3.50) K/uL [place] # (Auto) 0.51 (0.00-1.00) K/uL Eos # (Auto) 0.14 (0.00-0.50) K/uL Baso # (Auto) 0.02 (0.00-0.20) K/uL PT 10.7 (9.5-12.0) SEC INR 1.0 APTT 30.2 (21.0-31.3) SEC D-Dimer, Quantitative (0-400) ng/mL Sodium (136-145) mmol/L Potassium (3.5-5.1) mmol/L Chloride (98-107) mmol/L Carbon Dioxide (21.0-32.0) mmol/L BUN (7-18) mg/dL Creatinine (0.51-1.17) mg/dL Est Cr Clr Drug Dosing Estimated GFR (MDRD) mL/min Glucose (74-106) mg/dL POC Glucose (65-110) mg/dl Hemoglobin A1c (4.3-5.7) % Lactic Acid (0.4-2.0) mmol/L Uric Acid (2.6-7.2) mg/dL Calcium (8.5-10.1) mg/dL Phosphorus (2.6-4.7) mg/dL Magnesium (1.8-2.4) mg/dL Iron (50-175) ug/dL TIBC (250-450) ug/dL % Saturation Ferritin (8-388) ng/mL Total Bilirubin (0.2-1.0) mg/dL AST (15-37) U/L ALT (12-78) U/L Alkaline Phosphatase (46-116) IU/L Creatine Kinase (26-308) U/L Creatine Kinase Index (0.0-2.5) % CK-MB (CK-2) (0.00-3.60) ng/mL Troponin I (0.000-0.056) ng/mL NT-Pro-B Natriuret Pep (0-125) pg/mL Total Protein (6.4-8.2) g/dL Albumin (3.4-5.0) g/dL Triglycerides (30-150) mg/dL Cholesterol (100-200) mg/dL LDL Cholesterol, Calc (0-100) mg/dL HDL Cholesterol (40-60) mg/dL Vitamin B12 (193-986) pg/mL TSH, Ultra Sensitive (0.358-3.740) mIU/mL Specimen Type Urinvoid Urine Color Yellow Urine Appearance Clear Urine pH 5.5 (5.0-9.0) Ur Specific Strang 1.010 (1.005-1.030) Urine Protein Negative (NEGATIVE) mg/dL Urine Glucose (UA) 500 H (NEGATIVE) mg/dL Urine Ketones Negative (NEGATIVE) mg/dL Urine Occult Blood Negative (NEGATIVE) Urine Nitrite Negative (NEGATIVE) Urine Bilirubin Negative (NEGATIVE) Urine Urobilinogen 0.2 (0.2-1.0) E.U./dL Ur Leukocyte Esterase Negative (NEGATIVE) Urine RBC Not seen /HPF Urine WBC 0-5 /HPF Ur Epithelial Cells Rare /LPF Urine Bacteria Rare (NONE TO FEW) /HPF 04/18/19 04/18/19 04/18/19 Range/Units 12:45 12:45 12:45 WBC (4.0-10.2) K/uL RBC (4.33-5.41) M/uL Hgb (13.1-16.8) g/dL Hct (39.0-49.0) % MCV (84.0-98.0) fL MCH (28.2-33.3) pg MCHC (31.7-36.0) g/dL RDW (11.2-14.1) % Plt Count (150-350) K/uL Neut % (Auto) (45.0-80.0) % Lymph % (Auto) (10.0-50.0) % [place] % (Auto) (2.0-14.0) % Eos % (Auto) (0.0-5.0) % Baso % (Auto) (0.0-2.0) % Neut # (Auto) (1.40-7.00) K/uL Lymph # (Auto) (0.50-3.50) K/uL [place] # (Auto) (0.00-1.00) K/uL Eos # (Auto) (0.00-0.50) K/uL Baso # (Auto) (0.00-0.20) K/uL PT (9.5-12.0) SEC INR APTT (21.0-31.3) SEC D-Dimer, Quantitative 800 H (0-400) ng/mL Sodium 134 L (136-145) mmol/L Potassium 4.3 (3.5-5.1) mmol/L Chloride 97 L (98-107) mmol/L Carbon Dioxide 29.8 (21.0-32.0) mmol/L BUN 13 (7-18) mg/dL Creatinine 0.90 (0.51-1.17) mg/dL Est Cr Clr Drug Dosing TNP Estimated GFR (MDRD) > 60 mL/min Glucose 485 H* (74-106) mg/dL POC Glucose (65-110) mg/dl Hemoglobin A1c (4.3-5.7) % Lactic Acid 1.8 (0.4-2.0) mmol/L Uric Acid 3.0 (2.6-7.2) mg/dL Calcium 9.0 (8.5-10.1) mg/dL Phosphorus (2.6-4.7) mg/dL Magnesium 1.9 (1.8-2.4) mg/dL Iron (50-175) ug/dL TIBC (250-450) ug/dL % Saturation Ferritin (8-388) ng/mL Total Bilirubin 0.5 (0.2-1.0) mg/dL AST 47 H (15-37) U/L ALT 83 H (12-78) U/L Alkaline Phosphatase 216 H (46-116) IU/L Creatine Kinase 138 (26-308) U/L Creatine Kinase Index 1.4 (0.0-2.5) % CK-MB (CK-2) 2.00 (0.00-3.60) ng/mL Troponin I 0.002 (0.000-0.056) ng/mL NT-Pro-B Natriuret Pep 137 H (0-125) pg/mL Total Protein 7.8 (6.4-8.2) g/dL Albumin 3.4 (3.4-5.0) g/dL Triglycerides (30-150) mg/dL Cholesterol (100-200) mg/dL LDL Cholesterol, Calc (0-100) mg/dL HDL Cholesterol (40-60) mg/dL Vitamin B12 (193-986) pg/mL TSH, Ultra Sensitive 1.853 (0.358-3.740) mIU/mL Specimen Type Urine Color Urine Appearance Urine pH (5.0-9.0) Ur Specific Strang (1.005-1.030) Urine Protein (NEGATIVE) mg/dL Urine Glucose (UA) (NEGATIVE) mg/dL Urine Ketones (NEGATIVE) mg/dL Urine Occult Blood (NEGATIVE) Urine Nitrite (NEGATIVE) Urine Bilirubin (NEGATIVE) Urine Urobilinogen (0.2-1.0) E.U./dL Ur Leukocyte Esterase (NEGATIVE) Urine RBC /HPF Urine WBC /HPF Ur Epithelial Cells /LPF Urine Bacteria (NONE TO FEW) /HPF 04/18/19 04/18/19 04/18/19 Range/Units 17:06 21:00 21:05 WBC (4.0-10.2) K/uL RBC (4.33-5.41) M/uL Hgb (13.1-16.8) g/dL Hct (39.0-49.0) % MCV (84.0-98.0) fL MCH (28.2-33.3) pg MCHC (31.7-36.0) g/dL RDW (11.2-14.1) % Plt Count (150-350) K/uL Neut % (Auto) (45.0-80.0) % Lymph % (Auto) (10.0-50.0) % [place] % (Auto) (2.0-14.0) % Eos % (Auto) (0.0-5.0) % Baso % (Auto) (0.0-2.0) % Neut # (Auto) (1.40-7.00) K/uL Lymph # (Auto) (0.50-3.50) K/uL [place] # (Auto) (0.00-1.00) K/uL Eos # (Auto) (0.00-0.50) K/uL Baso # (Auto) (0.00-0.20) K/uL PT (9.5-12.0) SEC INR APTT (21.0-31.3) SEC D-Dimer, Quantitative (0-400) ng/mL Sodium (136-145) mmol/L Potassium (3.5-5.1) mmol/L Chloride (98-107) mmol/L Carbon Dioxide (21.0-32.0) mmol/L BUN (7-18) mg/dL Creatinine (0.51-1.17) mg/dL Est Cr Clr Drug Dosing Estimated GFR (MDRD) mL/min Glucose (74-106) mg/dL POC Glucose 394 H* 360 H* (65-110) mg/dl Hemoglobin A1c (4.3-5.7) % Lactic Acid (0.4-2.0) mmol/L Uric Acid (2.6-7.2) mg/dL Calcium (8.5-10.1) mg/dL Phosphorus (2.6-4.7) mg/dL Magnesium (1.8-2.4) mg/dL Iron (50-175) ug/dL TIBC (250-450) ug/dL % Saturation Ferritin (8-388) ng/mL Total Bilirubin (0.2-1.0) mg/dL AST (15-37) U/L ALT (12-78) U/L Alkaline Phosphatase (46-116) IU/L Creatine Kinase 106 (26-308) U/L Creatine Kinase Index 1.4 (0.0-2.5) % CK-MB (CK-2) 1.50 (0.00-3.60) ng/mL Troponin I 0.002 (0.000-0.056) ng/mL NT-Pro-B Natriuret Pep (0-125) pg/mL Total Protein (6.4-8.2) g/dL Albumin (3.4-5.0) g/dL Triglycerides (30-150) mg/dL Cholesterol (100-200) mg/dL LDL Cholesterol, Calc (0-100) mg/dL HDL Cholesterol (40-60) mg/dL Vitamin B12 (193-986) pg/mL TSH, Ultra Sensitive (0.358-3.740) mIU/mL Specimen Type Urine Color Urine Appearance Urine pH (5.0-9.0) Ur Specific Strang (1.005-1.030) Urine Protein (NEGATIVE) mg/dL Urine Glucose (UA) (NEGATIVE) mg/dL Urine Ketones (NEGATIVE) mg/dL Urine Occult Blood (NEGATIVE) Urine Nitrite (NEGATIVE) Urine Bilirubin (NEGATIVE) Urine Urobilinogen (0.2-1.0) E.U./dL Ur Leukocyte Esterase (NEGATIVE) Urine RBC /HPF Urine WBC /HPF Ur Epithelial Cells /LPF Urine Bacteria (NONE TO FEW) /HPF 04/19/19 04/19/19 04/19/19 Range/Units 03:43 07:00 07:00 WBC 5.6 (4.0-10.2) K/uL RBC 4.58 (4.33-5.41) M/uL Hgb 15.2 (13.1-16.8) g/dL Hct 43.5 (39.0-49.0) % MCV 95.0 (84.0-98.0) fL MCH 33.2 (28.2-33.3) pg MCHC 34.9 (31.7-36.0) g/dL RDW 13.1 (11.2-14.1) % Plt Count 98 L (150-350) K/uL Neut % (Auto) 56.1 (45.0-80.0) % Lymph % (Auto) 30.0 (10.0-50.0) % [place] % (Auto) 11.5 (2.0-14.0) % Eos % (Auto) 2.0 (0.0-5.0) % Baso % (Auto) 0.4 (0.0-2.0) % Neut # (Auto) 3.13 (1.40-7.00) K/uL Lymph # (Auto) 1.67 (0.50-3.50) K/uL [place] # (Auto) 0.64 (0.00-1.00) K/uL Eos # (Auto) 0.11 (0.00-0.50) K/uL Baso # (Auto) 0.02 (0.00-0.20) K/uL PT (9.5-12.0) SEC INR APTT (21.0-31.3) SEC D-Dimer, Quantitative 553 H (0-400) ng/mL Sodium (136-145) mmol/L Potassium (3.5-5.1) mmol/L Chloride (98-107) mmol/L Carbon Dioxide (21.0-32.0) mmol/L BUN (7-18) mg/dL Creatinine (0.51-1.17) mg/dL Est Cr Clr Drug Dosing Estimated GFR (MDRD) mL/min Glucose (74-106) mg/dL POC Glucose 213 H (65-110) mg/dl Hemoglobin A1c (4.3-5.7) % Lactic Acid (0.4-2.0) mmol/L Uric Acid (2.6-7.2) mg/dL Calcium (8.5-10.1) mg/dL Phosphorus (2.6-4.7) mg/dL Magnesium (1.8-2.4) mg/dL Iron (50-175) ug/dL TIBC (250-450) ug/dL % Saturation Ferritin (8-388) ng/mL Total Bilirubin (0.2-1.0) mg/dL AST (15-37) U/L ALT (12-78) U/L Alkaline Phosphatase (46-116) IU/L Creatine Kinase (26-308) U/L Creatine Kinase Index (0.0-2.5) % CK-MB (CK-2) (0.00-3.60) ng/mL Troponin I (0.000-0.056) ng/mL NT-Pro-B Natriuret Pep (0-125) pg/mL Total Protein (6.4-8.2) g/dL Albumin (3.4-5.0) g/dL Triglycerides (30-150) mg/dL Cholesterol (100-200) mg/dL LDL Cholesterol, Calc (0-100) mg/dL HDL Cholesterol (40-60) mg/dL Vitamin B12 (193-986) pg/mL TSH, Ultra Sensitive (0.358-3.740) mIU/mL Specimen Type Urine Color Urine Appearance Urine pH (5.0-9.0) Ur Specific Strang (1.005-1.030) Urine Protein (NEGATIVE) mg/dL Urine Glucose (UA) (NEGATIVE) mg/dL Urine Ketones (NEGATIVE) mg/dL Urine Occult Blood (NEGATIVE) Urine Nitrite (NEGATIVE) Urine Bilirubin (NEGATIVE) Urine Urobilinogen (0.2-1.0) E.U./dL Ur Leukocyte Esterase (NEGATIVE) Urine RBC /HPF Urine WBC /HPF Ur Epithelial Cells /LPF Urine Bacteria (NONE TO FEW) /HPF 04/19/19 04/19/19 04/19/19 Range/Units 07:00 07:00 07:00 WBC (4.0-10.2) K/uL RBC (4.33-5.41) M/uL Hgb (13.1-16.8) g/dL Hct (39.0-49.0) % MCV (84.0-98.0) fL MCH (28.2-33.3) pg MCHC (31.7-36.0) g/dL RDW (11.2-14.1) % Plt Count (150-350) K/uL Neut % (Auto) (45.0-80.0) % Lymph % (Auto) (10.0-50.0) % [place] % (Auto) (2.0-14.0) % Eos % (Auto) (0.0-5.0) % Baso % (Auto) (0.0-2.0) % Neut # (Auto) (1.40-7.00) K/uL Lymph # (Auto) (0.50-3.50) K/uL [place] # (Auto) (0.00-1.00) K/uL Eos # (Auto) (0.00-0.50) K/uL Baso # (Auto) (0.00-0.20) K/uL PT (9.5-12.0) SEC INR APTT (21.0-31.3) SEC D-Dimer, Quantitative (0-400) ng/mL Sodium 138 (136-145) mmol/L Potassium 3.1 L (3.5-5.1) mmol/L Chloride 99 (98-107) mmol/L Carbon Dioxide 29.0 (21.0-32.0) mmol/L BUN 12 (7-18) mg/dL Creatinine 0.88 (0.51-1.17) mg/dL Est Cr Clr Drug Dosing 82.78 Estimated GFR (MDRD) > 60 mL/min Glucose 241 H (74-106) mg/dL POC Glucose (65-110) mg/dl Hemoglobin A1c 13.0 H (4.3-5.7) % Lactic Acid (0.4-2.0) mmol/L Uric Acid (2.6-7.2) mg/dL Calcium 9.3 (8.5-10.1) mg/dL Phosphorus 4.0 (2.6-4.7) mg/dL Magnesium (1.8-2.4) mg/dL Iron 79 (50-175) ug/dL TIBC 371 (250-450) ug/dL % Saturation 21.293 Ferritin 72 (8-388) ng/mL Total Bilirubin 0.9 (0.2-1.0) mg/dL AST 46 H (15-37) U/L ALT 80 H (12-78) U/L Alkaline Phosphatase 209 H (46-116) IU/L Creatine Kinase 140 (26-308) U/L Creatine Kinase Index 0.9 (0.0-2.5) % CK-MB (CK-2) 1.20 (0.00-3.60) ng/mL Troponin I 0.000 (0.000-0.056) ng/mL NT-Pro-B Natriuret Pep 67 (0-125) pg/mL Total Protein 7.8 (6.4-8.2) g/dL Albumin 3.5 (3.4-5.0) g/dL Triglycerides 192 H (30-150) mg/dL Cholesterol 162 (100-200) mg/dL LDL Cholesterol, Calc 81 (0-100) mg/dL HDL Cholesterol 43 (40-60) mg/dL Vitamin B12 1062 H (193-986) pg/mL TSH, Ultra Sensitive (0.358-3.740) mIU/mL Specimen Type Urine Color Urine Appearance Urine pH (5.0-9.0) Ur Specific Strang (1.005-1.030) Urine Protein (NEGATIVE) mg/dL Urine Glucose (UA) (NEGATIVE) mg/dL Urine Ketones (NEGATIVE) mg/dL Urine Occult Blood (NEGATIVE) Urine Nitrite (NEGATIVE) Urine Bilirubin (NEGATIVE) Urine Urobilinogen (0.2-1.0) E.U./dL Ur Leukocyte Esterase (NEGATIVE) Urine RBC /HPF Urine WBC /HPF Ur Epithelial Cells /LPF Urine Bacteria (NONE TO FEW) /HPF 04/19/19 Range/Units 07:02 WBC (4.0-10.2) K/uL RBC (4.33-5.41) M/uL Hgb (13.1-16.8) g/dL Hct (39.0-49.0) % MCV (84.0-98.0) fL MCH (28.2-33.3) pg MCHC (31.7-36.0) g/dL RDW (11.2-14.1) % Plt Count (150-350) K/uL Neut % (Auto) (45.0-80.0) % Lymph % (Auto) (10.0-50.0) % [place] % (Auto) (2.0-14.0) % Eos % (Auto) (0.0-5.0) % Baso % (Auto) (0.0-2.0) % Neut # (Auto) (1.40-7.00) K/uL Lymph # (Auto) (0.50-3.50) K/uL [place] # (Auto) (0.00-1.00) K/uL Eos # (Auto) (0.00-0.50) K/uL Baso # (Auto) (0.00-0.20) K/uL PT (9.5-12.0) SEC INR APTT (21.0-31.3) SEC D-Dimer, Quantitative (0-400) ng/mL Sodium (136-145) mmol/L Potassium (3.5-5.1) mmol/L Chloride (98-107) mmol/L Carbon Dioxide (21.0-32.0) mmol/L BUN (7-18) mg/dL Creatinine (0.51-1.17) mg/dL Est Cr Clr Drug Dosing Estimated GFR (MDRD) mL/min Glucose (74-106) mg/dL POC Glucose 236 H (65-110) mg/dl Hemoglobin A1c (4.3-5.7) % Lactic Acid (0.4-2.0) mmol/L Uric Acid (2.6-7.2) mg/dL Calcium (8.5-10.1) mg/dL Phosphorus (2.6-4.7) mg/dL Magnesium (1.8-2.4) mg/dL Iron (50-175) ug/dL TIBC (250-450) ug/dL % Saturation Ferritin (8-388) ng/mL Total Bilirubin (0.2-1.0) mg/dL AST (15-37) U/L ALT (12-78) U/L Alkaline Phosphatase (46-116) IU/L Creatine Kinase (26-308) U/L Creatine Kinase Index (0.0-2.5) % CK-MB (CK-2) (0.00-3.60) ng/mL Troponin I (0.000-0.056) ng/mL NT-Pro-B Natriuret Pep (0-125) pg/mL Total Protein (6.4-8.2) g/dL Albumin (3.4-5.0) g/dL Triglycerides (30-150) mg/dL Cholesterol (100-200) mg/dL LDL Cholesterol, Calc (0-100) mg/dL HDL Cholesterol (40-60) mg/dL Vitamin B12 (193-986) pg/mL TSH, Ultra Sensitive (0.358-3.740) mIU/mL Specimen Type Urine Color Urine Appearance Urine pH (5.0-9.0) Ur Specific Strang (1.005-1.030) Urine Protein (NEGATIVE) mg/dL Urine Glucose (UA) (NEGATIVE) mg/dL Urine Ketones (NEGATIVE) mg/dL Urine Occult Blood (NEGATIVE) Urine Nitrite (NEGATIVE) Urine Bilirubin (NEGATIVE) Urine Urobilinogen (0.2-1.0) E.U./dL Ur Leukocyte Esterase (NEGATIVE) Urine RBC /HPF Urine WBC /HPF Ur Epithelial Cells /LPF Urine Bacteria (NONE TO FEW) /HPF [facility] Results Last 24 Hours: Microbiology 04/18/19 15:47 Stool Occult Blood ([place]) - Final Stool / Feces NEGATIVE OCCULT BLOOD REFERENCE RANGE: NEGATIVE Med Orders - Current: Current Medications Acetaminophen (Tylenol) 650 mg PO Q4H PRN PRN Reason: Pain Last Admin: 04/18/19 19:55 Dose: 650 mg Albuterol (Proventil Neb Soln) 2.5 mg INH Q2H PRN PRN Reason: SHORTNESS OF BREATH Albuterol/Ipratropium (Duoneb 3.0-0.5 Mg/3 Ml) 3 ml NEB Q4HRRT PRN PRN Reason: Dyspnea Albuterol/Ipratropium (Duoneb 3.0-0.5 Mg/3 Ml) 3 ml NEB Q6HRRT [facility] Last Admin: 04/19/19 07:46 Dose: 3 ml Aspirin (Halfprin) 81 mg PO DAILY [facility] Last Admin: 04/19/19 07:44 Dose: 81 mg Budesonide (Pulmicort) 0.5 mg NEB BIDRT [facility] Last Admin: 04/19/19 07:46 Dose: 0.5 mg Diazepam (Valium.) 5 mg PO BEDTIME [facility] Last Admin: 04/18/19 19:55 Dose: 5 mg Duloxetine HCl (Cymbalta) 30 mg PO DAILY [facility] Last Admin: 04/19/19 07:44 Dose: 30 mg Enoxaparin Sodium (Lovenox) 40 mg SUBCUT Q24H [facility] Last Admin: 04/18/19 17:25 Dose: 40 mg Ferrous Sulfate (Ferrous Sulfate) 325 mg PO DAILY [facility] Last Admin: 04/19/19 07:45 Dose: 325 mg Finasteride (Proscar) 5 mg PO DAILY [facility] Last Admin: 04/19/19 07:43 Dose: 5 mg Folic Acid (Folic Acid) 1 mg PO DAILY [facility] Last Admin: 04/19/19 07:43 Dose: 1 mg Furosemide (Lasix) 40 mg IVPUSH Q8H [facility] Last Admin: 04/19/19 03:59 Dose: 40 mg Gabapentin (Neurontin) 600 mg PO QID PRN PRN Reason: NERVE PAIN Guaifenesin (Mucinex) 600 mg PO BEDTIME [facility] Last Admin: 04/18/19 19:55 Dose: 600 mg Insulin Human Lispro (Humalog) 0 unit SUBCUT QIDACANDBED [facility]; Protocol Last Admin: 04/19/19 07:48 Dose: 4 unit Insulin Lispro Protam/Lispro Human (Humalog Mix 75-25) 30 unit SUBCUT DAILY@ 0730 [facility] Last Admin: 04/19/19 07:46 Dose: 30 unit Insulin Lispro Protam/Lispro Human (Humalog Mix 75-25) 26 unit SUBCUT QPM@1730 [facility] Isosorbide Mononitrate (Imdur) 30 mg PO DAILY [facility] Last Admin: 04/19/19 07:42 Dose: 30 mg Losartan Potassium (Cozaar) 100 mg PO DAILY [facility] Last Admin: 04/19/19 07:43 Dose: 100 mg Metformin HCl (Glucophage) 500 mg PO BIDMEALS [facility] Last Admin: 04/19/19 07:44 Dose: 500 mg Metoprolol Succinate (Toprol Xl) 25 mg PO DAILY [facility] Last Admin: 04/19/19 07:45 Dose: 25 mg Pantoprazole Sodium (Protonix) 40 mg PO DAILY [facility] Last Admin: 04/19/19 07:43 Dose: 40 mg Potassium Chloride (Klor-Con M20) 20 meq PO TID [facility] Last Admin: 04/19/19 07:44 Dose: 20 meq Pramipexole Dihydrochloride (Mirapex) 1 mg PO BID [facility] Last Admin: 04/19/19 07:44 Dose: 1 mg Sodium Chloride (Saline Flush) 10 ml FLUSH ASDIRECTED PRN PRN Reason: Keep Vein Open Last Admin: 04/19/19 03:39 Dose: 10 ml Sodium Chloride (Saline Flush) 10 ml FLUSH Q12HR PRN PRN Reason: Keep Vein Open Tamsulosin HCl (Flomax) 0.4 mg PO DAILY [facility] Last Admin: 04/19/19 07:45 Dose: 0.4 mg Discontinued Medications Famotidine (Pepcid) 40 mg IVPUSH ONETIME ONE Stop: 04/18/19 12:30 Last Admin: 04/18/19 14:15 Dose: 40 mg Furosemide (Lasix) 60 mg IVPUSH NOW ONE Stop: 04/18/19 13:35 Last Admin: 04/18/19 14:57 Dose: 60 mg Insulin Human Regular (Humulin R) 10 unit IV ONETIME ONE Stop: 04/18/19 13:35 Last Admin: 04/18/19 14:54 Dose: 10 unit Insulin Lispro Protam/Lispro Human (Humalog Mix 75-25) 24 unit SUBCUT BIDAC [facility] Last Admin: 04/18/19 17:25 Dose: 24 unit Non-Formulary Medication (Folic Acid [Folic Acid]) 0.8 mg PO DAILY [facility] - Exam Quality Assessment: DVT Prophylaxis (Lovenox). No: Supplemental Oxygen, Central Line/PICC, Urine Catheter, Skin Breakdown, Restraints General: Alert, Oriented, Cooperative, No Acute Distress HEENT: Pupils Equal, Pupils Reactive, EOMI, Mucous Membr. Moist/[employer], Other ( Patient wearing glasses). No: Scleral Icterus Neck: Supple, Trachea Midline, No JVD, No Thyromegaly. No: Lymphadenopathy Lungs: Normal Respiratory Effort, Rales (Improved mild bilateral basilar rales) , Other (Nebulizer Treatment just completed). No: Rhonchi, Rub, Wheezing Cardiovascular: Regular Rate, Regular Rhythm, No Murmurs. No: Gallops, Rubs GI/Abdominal Exam: Normal Bowel Sounds, Soft, Non-Tender, No Organomegaly, No Distention, No Abnormal Bruit, No Mass, Other (Obese). No: Guarding (Male) Exam: Deferred Back Exam: Decreased Range of Motion (Stable chronic with previous history of back surgery), Other (Mild kyphosis). No: CVA Tenderness (L), CVA Tenderness (R ), Muscle Spasm, Paraspinal Tenderness, Vertebral Tenderness Extremities: Non-Tender, Normal Capillary Refill, Pedal Edema (Improved bilateral +1 pedal/pretibial edema), Limited Range of Motion (Stable chronic and shoulders bilaterally). No: No Pedal Edema, Elias's Sign Peripheral Pulses: 2+: Radial (L), Radial (R), Dorsalis Pedis (L), Dorsalis Pedis (R) Skin: Warm, Dry, Intact, Ecchymosis (Mild at Lovenox sites) Neurological: No New Focal Deficit, Other (Improved borderline confusion. Negative Babinski's) Psy/Mental Status: Alert, Normal Affect, Normal Mood. No: Agitated, Hallucinations, Withdrawal Symptoms - Problem List & Annotations (1) Diabetes mellitus SNOMED Code(s): 18498015 Code(s): E11.9 - TYPE 2 DIABETES MELLITUS WITHOUT COMPLICATIONS Status: Acute Priority: High Current Visit: Yes Qualifiers: Diabetes mellitus type: type 2 Diabetes mellitus mcc insulin use: with mcc use Diabetes mellitus complication status: with kidney complications Diabetes mellitus complication detail: with chronic kidney disease Chronic kidney disease stage: stage 3 (moderate) Qualified Code(s): E11.22 - Type 2 diabetes mellitus with diabetic chronic kidney disease; N18.3 - Chronic kidney disease, stage 3 (moderate); Z79.4 - long-term (current) use of insulin Annotation/Comment:: Patient did require insulin therapy in the past with significant hyperglycemia on admission and ineffective current insulin, etc. therapy.. IV Humulin regular insulin initiated in the emergency room with patient placed on a 4 times a day, before meals, sliding scale with additional change to Humalog mix. Initiated diabetic teaching during this hospitalization. Glycosylated hemoglobin shows previous extremely poor control with value of 13.0 % today. Weight loss in moderation is still advisable with patient having regained some of his previous weight loss. Continue further insulin adjustments with sliding scale to be changed to a twice a day basis Humalog mix scheduled on 04/19 secondary to improved blood sugars and for better compliance at home at discharge. Accu-Chek at 3 AM on 04/19 was 213 with no evidence of hypoglycemia. (2) Osteoarthritis SNOMED Code(s): 082009066 Code(s): M19.90 - UNSPECIFIED OSTEOARTHRITIS, UNSPECIFIED SITE Status: Chronic Priority: Medium Current Visit: Yes Qualifiers: Osteoarthritis location: multiple joints Osteoarthritis type: primary Qualified Code(s): M15.0 - Primary generalized (osteo)arthritis Annotation/Comment:: His osteoarthritis, including chronic bilateral shoulder pain and chronic low back pain, are stable by history with current disability as per emergency room note. Patient does use a left-sided cane. (3) Hypertension SNOMED Code(s): 64792859 Code(s): I10 - ESSENTIAL (PRIMARY) HYPERTENSION Status: Chronic Priority : Medium Current Visit: Yes Qualifiers: Hypertension type: essential hypertension Qualified Code(s): I10 - Essential (primary) hypertension Annotation/Comment:: Blood Pressures variable during this hospitalization with continued adjustment of medications required. Continue to observe closely during this hospitalization and at hospital discharge. IV Lasix therapy initiated in the emergency room with change of diuretic therapy at discharge. (4) Mixed anxiety depressive disorder SNOMED Code(s): 378889899 Code(s): F41.8 - OTHER SPECIFIED ANXIETY DISORDERS Status: Chronic Priority: Medium Current Visit: No Annotation/Comment:: Stable by history. Note chronic narcotic use secondary to his chronic low back pain with nonspecific chronic confusion. Continue to observe closely. Note recent ER evaluation and negative CT scan of the head on 12/27/18. His confusion is significantly improved today after improvement of his blood sugars. No neurological deficits at this time. (5) CHF (congestive heart failure) SNOMED Code(s): 88280291 Code(s): I50.9 - HEART FAILURE, UNSPECIFIED Status: Acute Priority: High Current Visit: Yes Onset Date: 12/27/18 Qualifiers: Heart failure type: combined systolic and diastolic Heart failure chronicity: acute on chronic Qualified Code(s): I50.43 - Acute on chronic combined systolic (congestive) and diastolic (congestive) heart failure Annotation/Comment:: IV Lasix initiated in the emergency room as above. Continue medication adjustments during this hospitalization. Patient has been noncompliant with his Lasix therapy secondary to increased urinary frequency with patient decreasing his dose on his own to 1 tablet by mouth twice a day rather than 2 tablets by mouth twice a day prior to admission. No chest pain or anginal type symptoms with negative workup for acute MN at this time. Note recent pacemaker placement and echocardiogram as per emergency room note with recent echocardiogram on 12/13/18. Cardiology consultation depending on his clinical course. Medication compliance was strongly encouraged in the emergency room and throughout this hospitalization. Note mild hyponatremia and LFTs elevation likely secondary to CHF and known fatty liver. (6) D-dimer, elevated SNOMED Code(s): 612523932 Code(s): R79.89 - OTHER SPECIFIED ABNORMAL FINDINGS OF BLOOD CHEMISTRY Status: Chronic Priority: High Current Visit: Yes Onset Date: 12/12/18 Annotation/Comment:: D-dimer elevation improved on 04/19 with low-dose prophylactic subcutaneous Lovenox therapy, which will be continued for now secondary to patient's overall decreased mobility. Note persistent chronic d- dimer elevation after recent diagnosis on 12/12/18 with negative CTA of the chest. Recent negative right leg venous Doppler studies on 02/04/19 as per emergency room note. (7) Confusion SNOMED Code(s): 159542071 Code(s): R41.0 - DISORIENTATION, UNSPECIFIED Status: Chronic Priority: Medium Current Visit: Yes Annotation/Comment:: Confusion significant improved today as above. Continue observe closely with patient needing home health at discharge secondary to previous history of medication noncompliance, etc.. Vitamin B 12 level was normal on 04/19 with patient already on high-dose folic acid therapy. Note previous borderline chronic confusion with negative CT scan of the head on 12/27/18. He has been noncompliant with his CPAP with patient starting his new CPAP mask shortly after admission. (8) Sleep apnea SNOMED Code(s): 17959430 Code(s): G47.30 - SLEEP APNEA, UNSPECIFIED Status: Chronic Priority: High Current Visit: Yes Qualifiers: Sleep apnea type: unspecified type Qualified Code(s): G47.30 - Sleep apnea , unspecified Annotation/Comment:: CPAP therapy with his new mask, which he has not yet tried at home, during this hospitalization. Compliance with CPAP therapy strongly encouraged. Further consultation depending on his clinical course. (9) Comfort measures only status SNOMED Code(s): 56979002190574 Code(s): Z51.5 - ENCOUNTER FOR PALLIATIVE CARE Status: Chronic Priority: Medium Current Visit: Yes Onset Date: 04/18/19 Annotation/Comment:: He is requesting comfort/palliative care status at this time. Transfers okay. (10) Hyperlipidemia SNOMED Code(s): 54095063 Code(s): E78.5 - HYPERLIPIDEMIA, UNSPECIFIED Status: Acute Current Visit : Yes - Problem List Review Problem List Initiated/Reviewed/Updated: Yes - My Orders Last 24 Hours: My Active Orders 04/18/19 12:15 CULTURE URINE [RM] Routine 04/18/19 12:29 Cardiac Monitoring [RC] Q2HR EKG Documentation Completion [RC] ASDIRECTED Oxygen Therapy, ED [RC] PRN Peripheral IV Care [RC] . DIRECTED Pulse Oximetry [RC] CONTINUOUS Up With Assistance [RC] PFP Chest 1V Frontal [CR] Stat Sodium Chloride 0.9% [Saline Flush] 10 ml FLUSH ASDIRECTED PRN Peripheral IV Insertion Adult [OM.PC] Stat Resuscitation Status Stat 04/18/19 15:47 Communication Order [RC] 08,20 Height and Weight [RC] DAILY Intake and Output Strict [RC] ASDIRECTED Oxygen Therapy [RC] 2300 Pulse Oximetry [RC] ASDIRECTED Up With Assistance [RC] ASDIRECTED Acetaminophen [Tylenol] 650 mg PO Q4H PRN Sodium Chloride 0.9% [Saline Flush] 10 ml FLUSH Q12HR PRN Antiembolic Hose [OM.PC] Routine CHF Questionnaire [COMM] Routine DVT/VTE Prophylaxis Reflex [OM.PC] Routine GM Immunization Reflex [OM.PC] Click To Edit 04/18/19 15:48 Antiembolic Devices [RC] .Routine Antiembolic Devices [RC] 04/18/19 15:52 Albuterol [Proventil Neb Soln] 2.5 mg INH Q2H PRN Albuterol/Ipratropium [DuoNeb 3.0-0.5 MG/3 ML] 3 ml NEB Q4HRRT PRN 04/18/19 15:53 RT Aerosol Therapy [RC] ASDIRECTED RT Incentive Spirometry [RC] ASDIRECTED 04/18/19 15:54 Communication Order [RC] 04/18/19 15:56 Communication Order [RC] 04/18/19 15:57 RT Aerosol Therapy [RC] 02,,,04/18/19 15:58 Comfort Measures [OM.PC] Routine 04/18/19 15:59 Communication Order [RC] 04/18/19 16:15 Gabapentin [Neurontin] 600 mg PO QID PRN 04/18/19 17:30 Blood Glucose Check, Bedside [RC] QIDACANDBED Insulin Lispro [HumaLOG] See Protocol SUBCUT QIDACANDBED metFORMIN [Glucophage] 500 mg PO BIDMEALS 04/18/19 18:00 Enoxaparin [Lovenox] 40 mg SUBCUT Q24H Potassium Chloride [Klor-Con M20] 20 meq PO TID Pramipexole [Mirapex] 1 mg PO BID 04/18/19 20:00 Albuterol/Ipratropium [DuoNeb 3.0-0.5 MG/3 ML] 3 ml NEB Q6HRRT Budesonide [Pulmicort] 0.5 mg NEB BIDRT diazePAM [Valium] 5 mg PO BEDTIME guaiFENesin [Mucinex] 600 mg PO BEDTIME 04/18/19 21:00 Furosemide [Lasix] 40 mg IVPUSH Q8H 04/18/19 21:57 Vital Signs [RC] Q4HR 04/18/19 23:45 H PYLORI STOOL ANTIGEN [MREF] ONETIME 04/18/19 Dinner Nothing per Oral Now Diet [DIET] 04/19/19 03:00 Blood Glucose Check, Bedside [RC] STAT 04/19/19 07:00 CK W CKMB [CHEM] Routine COMPREHENSIVE METABOLIC PN,CMP [CHEM] Routine LIPID PANEL [CHEM] Routine PHOSPHORUS [CHEM] Routine PRO B-TYPE NATRIUR PEPT,BNPPRO [CHEM] Routine TROPONIN I [CHEM] Routine VITAMIN B12 [CHEM] Routine 04/19/19 07:30 Insulin Lispro Prot/Lispro [HumaLOG Mix 75-25] 30 unit SUBCUT DAILY@0730 04/19/19 08:00 Aspirin [Halfprin] 81 mg PO DAILY DULoxetine [Cymbalta] 30 mg PO DAILY Ferrous Sulfate 325 mg PO DAILY Finasteride [Proscar] 5 mg PO DAILY Folic Acid 1 mg PO DAILY Isosorbide Mononitrate [Imdur] 30 mg PO DAILY Losartan [Cozaar] 100 mg PO DAILY Metoprolol Succinate [Toprol XL] 25 mg PO DAILY Pantoprazole [ProTONIX] 40 mg PO DAILY Tamsulosin [Flomax] 0.4 mg PO DAILY 04/19/19 17:30 Insulin Lispro Prot/Lispro [HumaLOG Mix 75-25] 26 unit SUBCUT QPM@6599 - Assessment Assessment:: As above - Plan Plan:: As above. testing specialist physician will round on the patient tomorrow, and I will resume care on 04/21. The patient will require about 2-3 days of inpatient/acute care secondary to multiple health problems, required medication adjustments, etc. as above.
[2019-04-19] MEDS: Acetaminophen 325 MG Tab PO PRN ×2 (09:14→18:23)
[2019-04-19] MEDS ORDERED: Docusate Sodium 100 MG Cap PO PRN (15:04)
[2019-04-19] MEDS: Enoxaparin 40 MG/0.4 ML Syringe SUBCUT SCH (17:21)
[2019-04-19] MEDS: Insulin Lispro Protamine/Lispro 75-25 100 Units/ML 10 ML Vial SUBCUT SCH ×2 (17:22)
[2019-04-19] MEDS ORDERED: Insulin Lispro 100 Units/ML 3 ML Vial SUBCUT SCH (17:30)
[2019-04-19] MEDS: Diazepam 5 MG Tab PO SCH (19:56)
[2019-04-19] MEDS: guaiFENesin 600 MG Tab.ER PO SCH (19:56)
[2019-04-19] MEDS ORDERED: metFORMIN 500 MG Tab PO ONE (20:17)
[2019-04-19] MEDS ORDERED: Insulin Regular, Human 100 Units/ML 3 ML Vial IV ONE (20:17)
[2019-04-20] MEDS: Albuterol/Ipratropium 3.0-0.5 MG/3 ML Neb Soln NEB SCH ×4 (02:01→20:08)
[2019-04-20] MEDS: Furosemide 40 MG/4 ML VIAL IVPUSH SCH ×3 (05:49→20:05)
[2019-04-20] MEDS: Acetaminophen 325 MG Tab PO PRN ×2 (05:59→20:07)
[2019-04-20 08:09] LABS: CHLORIDE,CL 100 mmol/L (98-107); SODIUM,NA 139 mmol/L (136-145)
[2019-04-20] MEDS: Budesonide 0.5 MG/2 ML Neb Susp NEB SCH ×2 (08:20→20:02)
[2019-04-20] MEDS: Losartan 50 MG Tab PO SCH (08:24)
[2019-04-20] MEDS: Folic Acid 1 MG Tab PO SCH (08:25)
[2019-04-20] MEDS: Potassium Chloride 20 MEQ Tab.ER PO SCH ×3 (08:25→17:04)
[2019-04-20] MEDS: Finasteride 5 MG Tab PO SCH (08:25)
[2019-04-20] MEDS: Ferrous Sulfate 325 MG Tab PO SCH (08:26)
[2019-04-20] MEDS: metFORMIN 500 MG Tab PO SCH ×2 (08:26→17:04)
[2019-04-20] MEDS: Metoprolol Succinate 25 MG Tab.ER PO SCH (08:27)
[2019-04-20] MEDS: Isosorbide Mononitrate 30 MG Tab.ER PO SCH (08:27)
[2019-04-20] MEDS: DULoxetine 30 MG Cap PO SCH (08:28)
[2019-04-20] MEDS: Tamsulosin 0.4 MG Cap.ER PO SCH (08:28)
[2019-04-20] MEDS: Pantoprazole 40 MG Tab.CR PO SCH (08:28)
[2019-04-20] MEDS: Insulin Lispro Protamine/Lispro 75-25 100 Units/ML 10 ML Vial SUBCUT SCH ×4 (08:29→17:06)
[2019-04-20] MEDS: Aspirin 81 MG Tab.EC PO SCH (08:37)
[2019-04-20] MEDS: Sodium Chloride 0.9% 10 ML Syringe FLUSH PRN ×2 (12:31→20:06)
--- NOTE | 2019-04-20 14:57 | PCM.PN ---
- General Info Date of Service: 04/20/19 Admission Dx/Problem (Free Text): 1. Hyperglycemia with decompensated IDDM 2. CHF 3. Confusion Subjective Update: Patient feels much improved. No acute complaints. Feels fatigued. Wonders when he can go home. Functional Status: Reports: Pain Controlled, Tolerating Diet, Ambulating, Urinating. Denies: New Symptoms - Review of Systems General: Reports: Fatigue. Denies: Fever HEENT: Reports: Glasses. Denies: Headaches, Sore Throat, Visual Changes Pulmonary: Reports: Shortness of Breath (gets winded when walking). Denies: Pleuritic Chest Pain, Cough, Sputum, Hemoptysis, Wheezing Cardiovascular: Reports: Dyspnea on Exertion (chronic), Orthopnea (chronic this past spring), Edema (chronic). Denies: Chest Pain, Palpitations, Lightheadedness Gastrointestinal: Reports: No Symptoms Genitourinary: Reports: No Symptoms Musculoskeletal: Reports: Shoulder Pain (chronic), Back Pain (chronic) Skin: Reports: Bruising (Lovenox) Neurological: Reports: Confusion (appears to have resolved), Numbness (chronic) , Paresthesia (chronic), Tingling (chronic), Tremors (chronic resting tremor), Difficulty Walking (requires cane). Denies: Dizziness, Headache, Change in Speech Psychiatric: Reports: No Symptoms - Patient Data Vitals - Most Recent: Last Vital Signs Temp 36.5 C 04/20/19 11:25 Pulse 86 04/20/19 11:25 Resp 16 04/20/19 11:25 BP 148/74 H 04/20/19 11:32 Pulse Ox 93 L 04/20/19 11:32 Weight - Most Recent: 128.321 kg I&O - Last 24 Hours: Intake & Output 04/19/19 04/20/19 04/20/19 22:59 06:59 14:59 Intake Total 860 200 Output Total 500 500 600 Balance 360 -300 -600 Lab Results Last 24 Hours: Laboratory Results - last 24 hr 04/19/19 04/19/19 04/20/19 Range/Units 17:08 19:59 02:09 WBC (4.0-10.2) K/uL RBC (4.33-5.41) M/uL Hgb (13.1-16.8) g/dL Hct (39.0-49.0) % MCV (84.0-98.0) fL MCH (28.2-33.3) pg MCHC (31.7-36.0) g/dL RDW (11.2-14.1) % Plt Count (150-350) K/uL Neut % (Auto) (45.0-80.0) % Lymph % (Auto) (10.0-50.0) % [place] % (Auto) (2.0-14.0) % Eos % (Auto) (0.0-5.0) % Baso % (Auto) (0.0-2.0) % Neut # (Auto) (1.40-7.00) K/uL Lymph # (Auto) (0.50-3.50) K/uL [place] # (Auto) (0.00-1.00) K/uL Eos # (Auto) (0.00-0.50) K/uL Baso # (Auto) (0.00-0.20) K/uL D-Dimer, Quantitative (0-400) ng/mL Sodium (136-145) mmol/L Potassium (3.5-5.1) mmol/L Chloride (98-107) mmol/L Carbon Dioxide (21.0-32.0) mmol/L BUN (7-18) mg/dL Creatinine (0.51-1.17) mg/dL Est Cr Clr Drug Dosing mL/min Estimated GFR (MDRD) mL/min Glucose (74-106) mg/dL POC Glucose 396 H* 359 H* 237 H (65-110) mg/dl Calcium (8.5-10.1) mg/dL NT-Pro-B Natriuret Pep (0-125) pg/mL 04/20/19 04/20/19 04/20/19 Range/Units 07:10 07:30 07:30 WBC 5.1 (4.0-10.2) K/uL RBC 4.76 (4.33-5.41) M/uL Hgb 15.9 (13.1-16.8) g/dL Hct 45.9 (39.0-49.0) % MCV 96.4 (84.0-98.0) fL MCH 33.4 H (28.2-33.3) pg MCHC 34.6 (31.7-36.0) g/dL RDW 13.8 (11.2-14.1) % Plt Count 109 L (150-350) K/uL Neut % (Auto) 61.6 (45.0-80.0) % Lymph % (Auto) 25.5 (10.0-50.0) % [place] % (Auto) 10.9 (2.0-14.0) % Eos % (Auto) 1.8 (0.0-5.0) % Baso % (Auto) 0.2 (0.0-2.0) % Neut # (Auto) 3.12 (1.40-7.00) K/uL Lymph # (Auto) 1.29 (0.50-3.50) K/uL [place] # (Auto) 0.55 (0.00-1.00) K/uL Eos # (Auto) 0.09 (0.00-0.50) K/uL Baso # (Auto) 0.01 (0.00-0.20) K/uL D-Dimer, Quantitative 689 H (0-400) ng/mL Sodium (136-145) mmol/L Potassium (3.5-5.1) mmol/L Chloride (98-107) mmol/L Carbon Dioxide (21.0-32.0) mmol/L BUN (7-18) mg/dL Creatinine (0.51-1.17) mg/dL Est Cr Clr Drug Dosing mL/min Estimated GFR (MDRD) mL/min Glucose (74-106) mg/dL POC Glucose 208 H (65-110) mg/dl Calcium (8.5-10.1) mg/dL NT-Pro-B Natriuret Pep (0-125) pg/mL 04/20/19 Range/Units 07:30 WBC (4.0-10.2) K/uL RBC (4.33-5.41) M/uL Hgb (13.1-16.8) g/dL Hct (39.0-49.0) % MCV (84.0-98.0) fL MCH (28.2-33.3) pg MCHC (31.7-36.0) g/dL RDW (11.2-14.1) % Plt Count (150-350) K/uL Neut % (Auto) (45.0-80.0) % Lymph % (Auto) (10.0-50.0) % [place] % (Auto) (2.0-14.0) % Eos % (Auto) (0.0-5.0) % Baso % (Auto) (0.0-2.0) % Neut # (Auto) (1.40-7.00) K/uL Lymph # (Auto) (0.50-3.50) K/uL [place] # (Auto) (0.00-1.00) K/uL Eos # (Auto) (0.00-0.50) K/uL Baso # (Auto) (0.00-0.20) K/uL D-Dimer, Quantitative (0-400) ng/mL Sodium 139 (136-145) mmol/L Potassium 3.6 (3.5-5.1) mmol/L Chloride 100 (98-107) mmol/L Carbon Dioxide 30.0 (21.0-32.0) mmol/L BUN 14 (7-18) mg/dL Creatinine 0.88 (0.51-1.17) mg/dL Est Cr Clr Drug Dosing 82.78 mL/min Estimated GFR (MDRD) > 60 mL/min Glucose 238 H (74-106) mg/dL POC Glucose (65-110) mg/dl Calcium 10.0 (8.5-10.1) mg/dL NT-Pro-B Natriuret Pep 42 (0-125) pg/mL [place] Results Last 24 Hours: Microbiology 04/18/19 23:45 Helicobacter pylori Antigen - Final Stool / Feces 04/18/19 12:15 Urine Culture - Final Urine, Midstream NO GROWTH AFTER 2 DAYS Med Orders - Current: Current Medications Acetaminophen (Tylenol) 650 mg PO Q4H PRN PRN Reason: Pain Last Admin: 04/20/19 05:59 Dose: 650 mg Albuterol (Proventil Neb Soln) 2.5 mg INH Q2H PRN PRN Reason: SHORTNESS OF BREATH Albuterol/Ipratropium (Duoneb 3.0-0.5 Mg/3 Ml) 3 ml NEB Q4HRRT PRN PRN Reason: Dyspnea Albuterol/Ipratropium (Duoneb 3.0-0.5 Mg/3 Ml) 3 ml NEB Q6HRRT [facility] Last Admin: 04/20/19 08:20 Dose: 3 ml Aspirin (Halfprin) 81 mg PO DAILY [facility] Last Admin: 04/20/19 08:37 Dose: 81 mg Budesonide (Pulmicort) 0.5 mg NEB BIDRT [facility] Last Admin: 04/20/19 08:20 Dose: 0.5 mg Diazepam (Valium.) 5 mg PO BEDTIME [facility] Last Admin: 04/19/19 19:56 Dose: 5 mg Docusate Sodium (Colace) 100 mg PO DAILY PRN PRN Reason: Constipation Duloxetine HCl (Cymbalta) 30 mg PO DAILY [facility] Last Admin: 04/20/19 08:28 Dose: 30 mg Enoxaparin Sodium (Lovenox) 40 mg SUBCUT Q24H [facility] Last Admin: 04/19/19 17:21 Dose: 40 mg Ferrous Sulfate (Ferrous Sulfate) 325 mg PO DAILY [facility] Last Admin: 04/20/19 08:26 Dose: 325 mg Finasteride (Proscar) 5 mg PO DAILY [facility] Last Admin: 04/20/19 08:25 Dose: 5 mg Folic Acid (Folic Acid) 1 mg PO DAILY [facility] Last Admin: 04/20/19 08:25 Dose: 1 mg Furosemide (Lasix) 40 mg IVPUSH Q8H [facility] Last Admin: 04/20/19 12:30 Dose: 40 mg Gabapentin (Neurontin) 600 mg PO QID PRN PRN Reason: NERVE PAIN Guaifenesin (Mucinex) 600 mg PO BEDTIME [facility] Last Admin: 04/19/19 19:56 Dose: 600 mg Insulin Lispro Protam/Lispro Human (Humalog Mix 75-25) 26 unit SUBCUT QPM@1730 [facility] Last Admin: 04/19/19 17:22 Dose: 26 unit Insulin Lispro Protam/Lispro Human (Humalog Mix 75-25) 0 unit SUBCUT BIDAC [facility] ; Protocol Last Admin: 04/20/19 09:11 Dose: 4 unit Insulin Lispro Protam/Lispro Human (Humalog Mix 75-25) 38 unit SUBCUT DAILY@ 0730 [facility] Last Admin: 04/20/19 08:29 Dose: 38 unit Isosorbide Mononitrate (Imdur) 30 mg PO DAILY [facility] Last Admin: 04/20/19 08:27 Dose: 30 mg Losartan Potassium (Cozaar) 100 mg PO DAILY [facility] Last Admin: 04/20/19 08:24 Dose: 100 mg Metformin HCl (Glucophage) 1,000 mg PO BIDMEALS [facility] Last Admin: 04/20/19 08:26 Dose: 1,000 mg Metoprolol Succinate (Toprol Xl) 25 mg PO DAILY [facility] Last Admin: 04/20/19 08:27 Dose: 25 mg Pantoprazole Sodium (Protonix) 40 mg PO DAILY [facility] Last Admin: 04/20/19 08:28 Dose: 40 mg Potassium Chloride (Klor-Con M20) 20 meq PO TID [facility] Last Admin: 04/20/19 12:30 Dose: 20 meq Pramipexole Dihydrochloride (Mirapex) 1 mg PO BID [facility] Last Admin: 04/20/19 08:27 Dose: 1 mg Sodium Chloride (Saline Flush) 10 ml FLUSH ASDIRECTED PRN PRN Reason: Keep Vein Open Last Admin: 04/20/19 12:31 Dose: 10 ml Sodium Chloride (Saline Flush) 10 ml FLUSH Q12HR PRN PRN Reason: Keep Vein Open Tamsulosin HCl (Flomax) 0.4 mg PO DAILY [facility] Last Admin: 04/20/19 08:28 Dose: 0.4 mg Discontinued Medications Famotidine (Pepcid) 40 mg IVPUSH ONETIME ONE Stop: 04/18/19 12:30 Last Admin: 04/18/19 14:15 Dose: 40 mg Furosemide (Lasix) 60 mg IVPUSH NOW ONE Stop: 04/18/19 13:35 Last Admin: 04/18/19 14:57 Dose: 60 mg Insulin Human Lispro (Humalog) 0 unit SUBCUT QIDACANDBED [facility]; Protocol Last Admin: 04/19/19 07:48 Dose: 4 unit Insulin Human Regular (Humulin R) 10 unit IV ONETIME ONE Stop: 04/18/19 13:35 Last Admin: 04/18/19 14:54 Dose: 10 unit Insulin Human Regular (Humulin R) 10 unit IV ONETIME ONE Stop: 04/19/19 20:18 Last Admin: 04/19/19 20:52 Dose: 10 units Insulin Lispro Protam/Lispro Human (Humalog Mix 75-25) 24 unit SUBCUT BIDAC [facility] Last Admin: 04/18/19 17:25 Dose: 24 unit Insulin Lispro Protam/Lispro Human (Humalog Mix 75-25) 30 unit SUBCUT DAILY@ 0730 [facility] Last Admin: 04/19/19 07:46 Dose: 30 unit Metformin HCl (Glucophage) 500 mg PO BIDMEALS [facility] Last Admin: 04/19/19 17:21 Dose: 500 mg Metformin HCl (Glucophage) 500 mg PO ONETIME ONE Stop: 04/19/19 20:18 Last Admin: 04/19/19 20:48 Dose: 500 mg Non-Formulary Medication (Folic Acid [Folic Acid]) 0.8 mg PO DAILY [facility] - Exam Quality Assessment: DVT Prophylaxis General: Alert, Oriented, Cooperative, No Acute Distress HEENT: Pupils Equal, Pupils Reactive, EOMI, Mucous Membr. Moist/[place] Neck: Supple Lungs: Normal Respiratory Effort, Rales (mild, at bases) Cardiovascular: Regular Rate, Regular Rhythm GI/Abdominal Exam: Soft, Non-Tender (Male) Exam: Deferred Back Exam: No: Muscle Spasm Extremities: Non-Tender, Normal Capillary Refill, Pedal Edema (mild bilateral) Skin: Warm, Dry Neurological: No New Focal Deficit Psy/Mental Status: Alert, Normal Affect, Normal Mood - Problem List & Annotations (1) CHF (congestive heart failure) SNOMED Code(s): 75370063 Code(s): I50.9 - HEART FAILURE, UNSPECIFIED Status: Acute Priority: High Current Visit: Yes Onset Date: 12/27/18 Qualifiers: Heart failure type: combined systolic and diastolic Heart failure chronicity: acute on chronic Qualified Code(s): I50.43 - Acute on chronic combined systolic (congestive) and diastolic (congestive) heart failure Annotation/Comment:: IV Lasix initiated in the emergency room as above. Has had approximately 6kg decrease in weight since admission. Continue medication adjustments during this hospitalization. Patient has been noncompliant with his Lasix therapy secondary to increased urinary frequency with patient decreasing his dose on his own to 1 tablet by mouth twice a day rather than 2 tablets by mouth twice a day prior to admission. No chest pain or anginal type symptoms with negative workup for acute HI at this time. Note recent pacemaker placement and echocardiogram as per emergency room note with recent echocardiogram on 12/13/18. Cardiology consultation depending on his clinical course. Medication compliance was strongly encouraged in the emergency room and throughout this hospitalization. Note mild hyponatremia and LFTs elevation likely secondary to CHF and known fatty liver. (2) Diabetes mellitus SNOMED Code(s): 25213153 Code(s): E11.9 - TYPE 2 DIABETES MELLITUS WITHOUT COMPLICATIONS Status: Acute Priority: High Current Visit: Yes Qualifiers: Diabetes mellitus type: type 2 Diabetes mellitus mcfp insulin use: with mcfp use Diabetes mellitus complication status: with kidney complications Diabetes mellitus complication detail: with chronic kidney disease Chronic kidney disease stage: stage 3 (moderate) Qualified Code(s): E11.22 - Type 2 diabetes mellitus with diabetic chronic kidney disease; N18.3 - Chronic kidney disease, stage 3 (moderate); Z79.4 - senior living (current) use of insulin Annotation/Comment:: Initiated diabetic teaching during this hospitalization. Glycosylated hemoglobin shows previous extremely poor control with value of 13.0 %. Continue further insulin adjustments with sliding scale to be changed to a twice a day basis Humalog mix scheduled on 04/19 secondary to improved blood sugars and for better compliance at home at discharge. (3) Comfort measures only status SNOMED Code(s): 25480664237176 Code(s): Z51.5 - ENCOUNTER FOR PALLIATIVE CARE Status: Chronic Priority: Medium Current Visit: Yes Onset Date: 04/18/19 Annotation/Comment:: He is requesting comfort/palliative care status at this time. Transfers okay. (4) Confusion SNOMED Code(s): 549594194 Code(s): R41.0 - DISORIENTATION, UNSPECIFIED Status: Chronic Priority: Medium Current Visit: Yes Annotation/Comment:: Confusion significantly improved. Home health at discharge suggested to patient secondary to previous history of medication noncompliance, etc. but he currently is refusing this option. Vitamin B 12 level was normal on 04/19 with patient already on high-dose folic acid therapy. Note previous borderline chronic confusion with negative CT scan of the head on 12/27/18. He has been noncompliant with his CPAP with patient starting his new CPAP mask shortly after admission. (5) D-dimer, elevated SNOMED Code(s): 487491882 Code(s): R79.89 - OTHER SPECIFIED ABNORMAL FINDINGS OF BLOOD CHEMISTRY Status: Chronic Priority: High Current Visit: Yes Onset Date: 12/12/18 Annotation/Comment:: D-dimer elevation stable with low-dose prophylactic subcutaneous Lovenox therapy, which will be continued for now secondary to patient's overall decreased mobility. Note persistent chronic d-dimer elevation after recent diagnosis on 12/12/18 with negative CTA of the chest. Recent negative right leg venous Doppler studies on 02/04/19 as per emergency room note. (6) Hypertension SNOMED Code(s): 56888692 Code(s): I10 - ESSENTIAL (PRIMARY) HYPERTENSION Status: Chronic Priority : Medium Current Visit: Yes Qualifiers: Hypertension type: essential hypertension Qualified Code(s): I10 - Essential (primary) hypertension Annotation/Comment:: Blood Pressures variable during this hospitalization with continued adjustment of medications required. Continue to observe closely during this hospitalization and at hospital discharge. IV Lasix therapy initiated in the emergency room with change of diuretic therapy at discharge. (7) Osteoarthritis SNOMED Code(s): 006222985 Code(s): M19.90 - UNSPECIFIED OSTEOARTHRITIS, UNSPECIFIED SITE Status: Chronic Priority: Medium Current Visit: Yes Qualifiers: Osteoarthritis location: multiple joints Osteoarthritis type: primary Qualified Code(s): M15.0 - Primary generalized (osteo)arthritis Annotation/Comment:: His osteoarthritis, including chronic bilateral shoulder pain and chronic low back pain, are stable by history with current disability as per emergency room note. Patient does use a left-sided cane. (8) Sleep apnea SNOMED Code(s): 67740036 Code(s): G47.30 - SLEEP APNEA, UNSPECIFIED Status: Chronic Priority: High Current Visit: Yes Qualifiers: Sleep apnea type: unspecified type Qualified Code(s): G47.30 - Sleep apnea , unspecified Annotation/Comment:: CPAP therapy with his new mask, which he has not yet tried at home, during this hospitalization. Compliance with CPAP therapy strongly encouraged. Further consultation depending on his clinical course. (9) Hyperlipidemia SNOMED Code(s): 31711668 Code(s): E78.5 - HYPERLIPIDEMIA, UNSPECIFIED Status: Chronic Priority: Low Current Visit: No Qualifiers: Hyperlipidemia type: unspecified Qualified Code(s): E78.5 - Hyperlipidemia , unspecified (10) Mixed anxiety depressive disorder SNOMED Code(s): 748835959 Code(s): F41.8 - OTHER SPECIFIED ANXIETY DISORDERS Status: Chronic Priority: Low Current Visit: No Annotation/Comment:: Stable per patient (11) COPD, Moderate chronic obstructive pulmonary disease SNOMED Code(s): 858012628 Code(s): J44.9 - CHRONIC OBSTRUCTIVE PULMONARY DISEASE, UNSPECIFIED Status : Chronic Priority: Medium Current Visit: Yes Annotation/Comment:: Stable by history with no recent history of fever, however mild recent URI and bronchitic-type symptoms. - Problem List Review Problem List Initiated/Reviewed/Updated: Yes - Assessment Assessment:: As above - Plan Plan:: As above. to resume care of patient in AM. The patient will require about 1-2 days of additional inpatient/acute care secondary to multiple health problems, required medication adjustments, etc. as above.
[2019-04-20] MEDS: Enoxaparin 40 MG/0.4 ML Syringe SUBCUT SCH (17:05)
[2019-04-20] MEDS ORDERED: Loperamide 2 MG Tab PO PRN (18:26)
[2019-04-20] MEDS: Diazepam 5 MG Tab PO SCH (20:01)
[2019-04-20] MEDS: guaiFENesin 600 MG Tab.ER PO SCH (20:01)
[2019-04-21] MEDS: Acetaminophen 325 MG Tab PO PRN ×2 (00:36→07:28)
[2019-04-21] MEDS: Albuterol/Ipratropium 3.0-0.5 MG/3 ML Neb Soln NEB SCH ×2 (02:59→07:18)
[2019-04-21] MEDS: Furosemide 40 MG/4 ML VIAL IVPUSH SCH (06:03)
[2019-04-21] MEDS: Pantoprazole 40 MG Tab.CR PO SCH (07:16)
[2019-04-21] MEDS: Metoprolol Succinate 25 MG Tab.ER PO SCH (07:16)
[2019-04-21] MEDS: Ferrous Sulfate 325 MG Tab PO SCH (07:16)
[2019-04-21] MEDS: Finasteride 5 MG Tab PO SCH (07:17)
[2019-04-21] MEDS: Losartan 50 MG Tab PO SCH (07:17)
[2019-04-21] MEDS: Potassium Chloride 20 MEQ Tab.ER PO SCH (07:17)
[2019-04-21] MEDS: Folic Acid 1 MG Tab PO SCH (07:17)
[2019-04-21] MEDS: Aspirin 81 MG Tab.EC PO SCH (07:17)
[2019-04-21] MEDS: Tamsulosin 0.4 MG Cap.ER PO SCH (07:17)
[2019-04-21] MEDS: DULoxetine 30 MG Cap PO SCH (07:17)
[2019-04-21] MEDS: Isosorbide Mononitrate 30 MG Tab.ER PO SCH (07:17)
[2019-04-21] MEDS: Insulin Lispro Protamine/Lispro 75-25 100 Units/ML 10 ML Vial SUBCUT SCH ×2 (07:18→07:19)
[2019-04-21] MEDS: metFORMIN 500 MG Tab PO SCH (07:18)
[2019-04-21] MEDS: Budesonide 0.5 MG/2 ML Neb Susp NEB SCH (07:18)
[2019-04-21 07:19] VITALS: BP 136/72
[2019-04-21 09:29] LABS: CHLORIDE,CL 98 mmol/L (98-107); SODIUM,NA 135 mmol/L (136-145)
--- NOTE | 2019-04-21 09:52 | PCM.DCSUM1 ---
Discharge Summary - Hospital Course HPI Initial Comments: See emergency room note/admission H&P Brief History: See emergency room note/admission H&P Diagnosis: Stroke: No Modified Garfield Scale: No Symptoms at All Modified Garfield Scale Score: 0 - Discharge Data Discharge Date: 04/21/19 Discharge Disposition: Home, W Home Health Agency 06 Condition: Good - Discharge Diagnosis/Problem(s) (1) Diabetes mellitus SNOMED Code(s): 34238811 ICD Code: E11.9 - TYPE 2 DIABETES MELLITUS WITHOUT COMPLICATIONS Status: Acute Priority: High Current Visit: Yes Problem Details: Blood sugars much improved during this hospitalization, however still moderate control. Patient was once again counseled by this provider concerning importance of medication compliance, how to use sliding scale, etc. Twice a day Accu-Cheks are to be brought to every doctor's visits in the future. Diabetic teaching was also conducted extensively during this hospitalization. Glycosylated hemoglobin shows previous extremely poor control with value of 13.0% during this hospitalization. He has tolerated his change to Humalog mix scheduled regimen with additional sliding scale as above. Glycosylated hemoglobin should be repeated in 3 months. Note patient also change to metformin during this hospitalization. Qualifiers: Diabetes mellitus type: type 2 Diabetes mellitus energy broker insulin use: with retirement use Diabetes mellitus complication status: with kidney complications Diabetes mellitus complication detail: with chronic kidney disease Chronic kidney disease stage: stage 3 (moderate) Qualified Code(s): E11.22 - Type 2 diabetes mellitus with diabetic chronic kidney disease; N18.3 - Chronic kidney disease, stage 3 (moderate); Z79.4 - MCC (current) use of insulin (2) Osteoarthritis SNOMED Code(s): 645191182 ICD Code: M19.90 - UNSPECIFIED OSTEOARTHRITIS, UNSPECIFIED SITE Status: Chronic Priority: Medium Current Visit: Yes Problem Details: His osteoarthritis, including chronic bilateral shoulder pain and chronic low back pain, are stable by history with current disability as per emergency room note. Patient does use a left-sided cane. Qualifiers: Osteoarthritis location: multiple joints Osteoarthritis type: primary Qualified Code(s): M15.0 - Primary generalized (osteo)arthritis (3) Hypertension SNOMED Code(s): 35175306 ICD Code: I10 - ESSENTIAL (PRIMARY) HYPERTENSION Status: Chronic Priority : Medium Current Visit: Yes Problem Details: Blood pressures are much improved at time of discharge. Note Blood Pressures were variable during this hospitalization with continued adjustment of medications required. Continue to observe closely by his regular provider. IV Lasix therapy initiated in the emergency room. Qualifiers: Hypertension type: essential hypertension Qualified Code(s): I10 - Essential (primary) hypertension (4) Mixed anxiety depressive disorder SNOMED Code(s): 506958117 ICD Code: F41.8 - OTHER SPECIFIED ANXIETY DISORDERS Status: Chronic Priority: Medium Current Visit: No Problem Details: Stable by history. He has not required any morphine throughout this hospitalization with this medication to be discontinued at this time. Note chronic narcotic use secondary to his chronic low back pain with nonspecific chronic confusion. Continue to observe closely. Note recent ER evaluation and negative CT scan of the head on . His confusion is significantly improved today after improvement of his blood sugars and adjustments of his medical therapy. No neurological deficits at this time. (5) CHF (congestive heart failure) SNOMED Code(s): 87889368 ICD Code: I50.9 - HEART FAILURE, UNSPECIFIED Status: Acute Priority: High Current Visit: Yes Onset Date: 12/27/18 Problem Details: IV Lasix initiated in the emergency room as above. Excellent weight loss and resolution of his previous dependent edema at time of discharge. Multiple medication adjustments during this hospitalization. Patient has been noncompliant with his Lasix therapy secondary to increased urinary frequency with patient decreasing his dose on his own to 1 tablet by mouth twice a day rather than 2 tablets by mouth twice a day prior to admission. No chest pain or anginal type symptoms with negative workup for acute MT at this time. Note recent pacemaker placement and echocardiogram as per emergency room note with recent echocardiogram on 12/13. Cardiology consultation depending on his clinical course. Medication compliance was strongly encouraged in the emergency room and throughout this hospitalization. Note mild hyponatremia secondary to IV Lasix therapy, however change back to previous oral Lasix regimen. His LFTs elevation significantly improved at time of discharge with CHF and known fatty liver contributing factors. Qualifiers: Heart failure type: combined systolic and diastolic Heart failure chronicity: acute on chronic Qualified Code(s): I50.43 - Acute on chronic combined systolic (congestive) and diastolic (congestive) heart failure (6) D-dimer, elevated SNOMED Code(s): 046987692 ICD Code: R79.89 - OTHER SPECIFIED ABNORMAL FINDINGS OF BLOOD CHEMISTRY Status: Chronic Priority: High Current Visit: Yes Onset Date: 12/12/18 Problem Details: D-dimer elevation stable with low-dose prophylactic subcutaneous Lovenox therapy, which will be discontinued at discharge. No clinical evidence of DVT or PE. Note persistent chronic d-dimer elevation after recent diagnosis on 12/12/18 with negative CTA of the chest. Recent negative right leg venous Doppler studies on 02/04/19 as per emergency room note. (7) Confusion SNOMED Code(s): 511431151 ICD Code: R41.0 - DISORIENTATION, UNSPECIFIED Status: Chronic Priority: Medium Current Visit: Yes Problem Details: Confusion significantly improved as above. He now does agree to recommended home health for medication set up and verification of medication compliance. Vitamin B 12 level was normal on with patient already on high-dose folic acid therapy. Note previous borderline chronic confusion with negative CT scan of the head on 12/27/18. He has been noncompliant with his CPAP with patient starting his new CPAP mask shortly after admission, however he has also been noncompliant with this therapy during this hospitalization. The importance of CPAP use for his confusion, blood pressure, heart disease, etc. was once again extensively discussed with the patient by me today. He does agree to be more compliant with this therapy in the future. This should be verified by home health. (8) Sleep apnea SNOMED Code(s): 45062974 ICD Code: G47.30 - SLEEP APNEA, UNSPECIFIED Status: Chronic Priority: High Current Visit: Yes Problem Details: As above Qualifiers: Sleep apnea type: unspecified type Qualified Code(s): G47.30 - Sleep apnea , unspecified (9) Comfort measures only status SNOMED Code(s): 27661207722267 ICD Code: Z51.5 - ENCOUNTER FOR PALLIATIVE CARE Status: Chronic Priority : Medium Current Visit: Yes Onset Date: 04/18/19 Problem Details: He is requesting comfort/palliative care status at this time. Transfers okay. (10) Hyperlipidemia SNOMED Code(s): 58696057 ICD Code: E78.5 - HYPERLIPIDEMIA, UNSPECIFIED Status: Chronic Priority: Low Current Visit: No Problem Details: Continue current medical therapy and weight loss in moderation. Dietary issues discussed with information to be provided at discharge. Lipid panel should be repeated in 3 months. Qualifiers: Hyperlipidemia type: unspecified Qualified Code(s): E78.5 - Hyperlipidemia , unspecified (11) Hypomagnesemia SNOMED Code(s): 415252688 ICD Code: E83.42 - HYPOMAGNESEMIA Status: Acute Priority: Medium Current Visit: Yes Onset Date: 04/21/19 Problem Details: Change to oral Lasix therapy at discharge. Repeat magnesium level at follow-up. Magnesium oxide therapy as per discharge instructions. (12) Hypoalbuminemia SNOMED Code(s): 967727823 ICD Code: E88.09 - OTH DISORDERS OF PLASMA-PROTEIN METABOLISM, NEC Status: Acute Priority: Medium Current Visit: Yes Onset Date: ~04/21/19 Problem Details: Consider high-protein Glucerna supplements, however high-protein diet for now secondary to patient's obesity and needed weight loss. Continue to observe closely by regular provider. - Patient Summary/Data Operative Procedure(s) Performed: None Complications: None Consults: Consultations 04/19/19 15:04 Consult to Dietary [Consult to Internet Database Specialist] [CONS] Routine 04/19/19 15:06 Consult to Case Management/Client Success Specialist [CONS] Routine Labs Pending at D/C: None Recommended Follow-up Testing/Procedures: As per discharge instructions Planned Operative Procedure(s) after DC: None Hospital Course: Patient was admitted to inpatient/acute care on telemetry with negative workup for acute MT. Note multiple medication adjustments, diabetic teaching, etc. required during this hospitalization. Initiate home health at discharge as above. No complications during this hospitalization, however close follow-up needed both by his regular provider and home health on an outpatient basis. - Patient Instructions Diet: Fluid Restriction Diet, Other: 1500-calorie ADA, high protein, diverticulosis Fluid Restriction: 2000 mL Activity: As Tolerated Driving: May Drive Today Showering/Bathing: May Shower Notify Provider of: Fever, Increased Pain, Nausea and/or Vomiting Other/Special Instructions: 1. Followup with your regular provider in 10-14 days as directed for reevaluation and recommended repeat chest x-ray, CBC, comprehensive metabolic panel, d-dimer, troponin I, BNP, and magnesium level. Bring these discharge instructions with you to that visit. 2. STRICT Compliance with twice a day Accu-Cheks, sliding scale, medications, and CPAP as extensively discussed. 3. Bring your Accu-Chek record to every doctor's appointment as discussed. 4. Tylenol 650 mg by mouth every 4 hours and/or OTC ibuprofen 2-3 tabs by mouth every 6 hours with food as directed./needed. You may stagger these medications for 48-72 hours only, which essentially means that you are receiving a pain medication about every 2 hours. 5. BenGay or equivalent, heating pad, and/or ice packs as directed. 6. Weight loss and activity in moderation as discussed. 7. Your glycosylated hemoglobin and lipid panel should be repeated in 3 months. 8. Immediately after this visit verify that your cellular telephone's voicemail has been activated and is empty. Also verify that your home telephone's answering machine is operating properly and has space to receive messages. Note that it is sometimes necessary for us to be able to contact you at a later date to discuss your medical care. 9. Please remember that we are ALWAYS here for you and want to answer any questions you may have. Feel free to call the hospital any time and we call you back CASTRO. - Discharge Plan *PRESCRIPTION DRUG MONITORING PROGRAM REVIEWED*: Not Applicable *COPY OF PRESCRIPTION DRUG MONITORING REPORT IN PATIENT YOLANDA: Not Applicable Prescriptions/Med Rec: Insulin Lispro Prot/Lispro [HumaLOG Mix 75-25] 38 unit SUBCUT DAILY@729 #1 vial Magnesium Oxide 400 mg PO DAILY #30 tab metFORMIN [Glucophage] 1,000 mg PO BIDMEALS #60 tablet Home Medications: Home Meds Ascorbic Acid [Vitamin C] 1,000 mg PO DAILY 12/12/18 [History] Aspirin [Halfprin] 81 mg PO DAILY 12/12/18 [History] Budesonide [Pulmicort] 0.5 mg IH BID 12/12/18 [History] Calcium Carbonate/Vitamin D3 [Calcium 600-Vit D3 800 Tablet] 1 each PO DAILY 08/20 [History] DULoxetine HCl [Cymbalta] 30 mg PO DAILY 12/12/18 [History] Ferrous Sulfate [Feosol] 325 mg PO DAILY 12/12/18 [History] Finasteride 5 mg PO DAILY 12/12/18 [History] Folic Acid 0.8 mg PO DAILY 12/12/18 [History] Gabapentin [Neurontin] 600 mg PO QID PRN 12/12/18 [History] Insulin Glargine,Hum.Rec.Anlog [Mary Whelan] 22 unit SQ BID 12/12/18 [ History] Isosorbide Mononitrate [Imdur] 30 mg PO DAILY 12/12/18 [History] Levalbuterol HCl [Xopenex Concentrate] 1.25 mg IH BID 12/12/18 [History] Losartan [Cozaar] 100 mg PO DAILY 12/12/18 [History] Metoprolol Succinate [Toprol XL] 25 mg PO DAILY 12/12/18 [History] Montelukast [Singulair] 10 mg PO BEDTIME 12/12/18 [History] Pantoprazole [ProTONIX] 40 mg PO DAILY 12/12/18 [History] Potassium Chloride [Klor-Con 10] 10 meq PO DAILY 12/12/18 [History] Pramipexole [Mirapex] 1 mg PO BID 12/12/18 [History] Tamsulosin [Flomax] 0.4 mg PO DAILY 12/12/18 [History] atorvaSTATin [Lipitor] 40 mg PO DAILY 12/12/18 [History] Furosemide 40 mg PO BID 12/27/18 [History] Diazepam [Valium] 5 mg PO BEDTIME 04/18/19 [History] Finasteride [Proscar] 5 mg PO DAILY 04/18/19 [History] Formoterol Fumarate [Perforomist] 1 dose INH BID 04/18/19 [History] Ipratropium [Atrovent] 1 dose INH Q6H PRN 04/18/19 [History] guaiFENesin [Mucinex] 1 tab PO BEDTIME 04/18/19 [History] Acetaminophen [Tylenol] 650 mg PO Q4H PRN tablet 04/21/19 [Rx] Docusate Sodium [Colace] 100 mg PO DAILY PRN cap 04/21/19 [Rx] Insulin Lispro Prot/Lispro [HumaLOG Mix 75-25] 0 unit SUBCUT BIDAC vial [Rx] Insulin Lispro Prot/Lispro [HumaLOG Mix 75-25] 26 unit SUBCUT QPM@1730 vial [Rx] Insulin Lispro Prot/Lispro [HumaLOG Mix 75-25] 38 unit SUBCUT DAILY@0730 #1 vial 04/21/19 [Rx] Loperamide [Imodium AD] 2 mg PO Q6H PRN tablet 04/21/19 [Rx] Magnesium Oxide 400 mg PO DAILY #30 tab 04/21/19 [Rx] metFORMIN [Glucophage] 1,000 mg PO BIDMEALS #60 tablet 04/21/19 [Rx] Oxygen Therapy Mode: CPAP Patient Handouts: Insulin Treatment for Diabetes Mellitus, Diabetes Mellitus and Foot Care, Hypercalcemia, Form - Daily Diabetes Record, Enoxaparin injection , Hyperglycemia, [id number], Famotidine injection, Type 2 Diabetes Mellitus, Self Care, Adult, [id number], Heart Failure, [id number], Carbohydrate Counting for Diabetes Mellitus, Adult, Living With Heart Failure, Insulin Lispro injection Forms: ED Department Discharge Referrals: Margret Marshall PA-C [Primary Care Provider] - - Discharge Summary/Plan Comment DC Time >30 min.: Yes (Coordination of care ) Discharge Summary/Plan Comment: As above. Extensive precautions were given to the patient, who is in agreement with the treatment plan. See Patient Instructions for further treatment and plan. - General Info Date of Service: 04/21/19 Admission Dx/Problem (Free Text: 1. Hyperglycemia with decompensated IDDM 2. CHF 3. Confusion Functional Status: Reports: Pain Controlled, Tolerating Diet, Ambulating, Urinating, Incentive Spirometry. Denies: New Symptoms Numeric/FACES Score: 3 (Stable chronic as below) - Review of Systems General: Reports: Weakness (Stable chronic with left cane required). Denies: Fever, Fatigue, Malaise, Chills, Night Sweats, Appetite (Good) HEENT: Reports: Glasses. Denies: Contact Lenses, Dysphasia, Ear Pain, Eye Pain , Headaches, Post Nasal Drip, Sinus Congestion, Sore Throat, Visual Changes Pulmonary: Reports: No Symptoms. Denies: Shortness of Breath, Pleuritic Chest Pain, Cough, Sputum, Hemoptysis, Wheezing Cardiovascular: Reports: No Symptoms. Denies: Chest Pain, Palpitations, Dyspnea on Exertion, Orthopnea, PND, Edema (Resolved dependent edema), Lightheadedness Gastrointestinal: Reports: No Symptoms. Denies: Abdominal Pain, Constipation, Decreased Appetite, Diarrhea (3 normal loose bowel movements yesterday), Difficulty Swallowing, Flatus, Hematochezia, Melena, Nausea, Vomiting Genitourinary: Reports: Incontinence. Denies: Dysuria, Frequency, Burning, Pain , Urgency, Hematuria, Retention, Flank Pain Musculoskeletal: Reports: Neck Pain (Stable chronic), Shoulder Pain (Stable chronic), Back Pain (Stable chronic). Denies: Leg Pain Skin: Reports: Bruising (Mild Lovenox sites). Denies: Diaphoresis, Pruritis, Rash Neurological: Reports: Numbness (Stable), Paresthesia (Stable), Tingling ( Stable chronic), Tremors (Stable chronic), Difficulty Walking (As above), Weakness (As above). Denies: Headache Psychiatric: Reports: No Symptoms. Denies: Confusion, Depression, Anxiety, Agitation, Hallucinations - Patient Data Vitals - Most Recent: Last Vital Signs Temp 36.8 C 04/21/19 06:00 Pulse 82 04/21/19 07:16 Resp 20 04/21/19 06:00 BP 136/72 04/21/19 07:17 Pulse Ox 92 L 04/21/19 06:00 Vital Signs - 24 hr 04/20/19 04/20/19 04/20/19 11:25 11:32 18:00 Temperature [ 36.5 C 37.2 C Temporal] Pulse, Peripheral Pulse, 86 73 Peripheral [ Left Pulse Oximetry] Pulse, Peripheral [ Right Pulse Oximetry] Respiratory 16 16 Rate Blood Pressure Blood Pressure 148/74 H [Left Upper Arm ] Blood Pressure 180/92 H 141/75 H [Right Upper Arm] O2 Sat by Pulse 94 L 93 L 93 L Oximetry 04/21/19 04/21/19 04/21/19 00:00 06:00 07:16 Temperature [ 37.5 C 36.8 C Temporal] Pulse, 82 Peripheral Pulse, Peripheral [ Left Pulse Oximetry] Pulse, 82 82 Peripheral [ Right Pulse Oximetry] Respiratory 16 20 Rate Blood Pressure 136/72 Blood Pressure [Left Upper Arm ] Blood Pressure 127/73 136/76 [Right Upper Arm] O2 Sat by Pulse 92 L 92 L Oximetry 04/21/19 07:17 Temperature [ Temporal] Pulse, Peripheral Pulse, Peripheral [ Left Pulse Oximetry] Pulse, Peripheral [ Right Pulse Oximetry] Respiratory Rate Blood Pressure 136/72 Blood Pressure [Left Upper Arm ] Blood Pressure [Right Upper Arm] O2 Sat by Pulse Oximetry Weight - Most Recent: 126.28 kg I&O - Last 24 hours: Intake & Output 04/20/19 04/21/19 04/21/19 22:59 06:59 14:59 Intake Total 480 350 360 Output Total 600 400 Balance -120 -50 360 Imaging Impressions - Last 24 hrs: Drapery Maker shows paced rhythm with heart rate in the 70s to 90s. Chest x-ray, portable, on 04/18/19 shows moderate COPD, cardiomegaly, prominence of the aortic arch, and centralized CHF with additional pacemaker noted. No pulmonary infiltrates, pneumothorax, etc. Lab Results - Last 24 hrs: Laboratory Results - last 24 hr 04/20/19 04/21/19 04/21/19 Range/Units 16:55 06:04 09:02 WBC 6.7 (4.0-10.2) K/uL RBC 4.68 (4.33-5.41) M/uL Hgb 15.7 (13.1-16.8) g/dL Hct 45.7 (39.0-49.0) % MCV 97.6 (84.0-98.0) fL MCH 33.5 H (28.2-33.3) pg MCHC 34.4 (31.7-36.0) g/dL RDW 14.2 H (11.2-14.1) % Plt Count 109 L (150-350) K/uL Neut % (Auto) 61.9 (45.0-80.0) % Lymph % (Auto) 23.3 (10.0-50.0) % [place] % (Auto) 12.8 (2.0-14.0) % Eos % (Auto) 1.7 (0.0-5.0) % Baso % (Auto) 0.3 (0.0-2.0) % Neut # (Auto) 4.13 (1.40-7.00) K/uL Lymph # (Auto) 1.55 (0.50-3.50) K/uL [place] # (Auto) 0.85 (0.00-1.00) K/uL Eos # (Auto) 0.11 (0.00-0.50) K/uL Baso # (Auto) 0.02 (0.00-0.20) K/uL Sodium (136-145) mmol/L Potassium (3.5-5.1) mmol/L Chloride (98-107) mmol/L Carbon Dioxide (21.0-32.0) mmol/L BUN (7-18) mg/dL Creatinine (0.51-1.17) mg/dL Est Cr Clr Drug Dosing mL/min Estimated GFR (MDRD) mL/min Glucose (74-106) mg/dL POC Glucose 331 H* 211 H (65-110) mg/dl Uric Acid (2.6-7.2) mg/dL Calcium (8.5-10.1) mg/dL Magnesium (1.8-2.4) mg/dL Total Bilirubin (0.2-1.0) mg/dL AST (15-37) U/L ALT (12-78) U/L Alkaline Phosphatase (46-116) IU/L Troponin I (0.000-0.056) ng/mL NT-Pro-B Natriuret Pep (0-125) pg/mL Total Protein (6.4-8.2) g/dL Albumin (3.4-5.0) g/dL 04/21/19 Range/Units 09:02 WBC (4.0-10.2) K/uL RBC (4.33-5.41) M/uL Hgb (13.1-16.8) g/dL Hct (39.0-49.0) % MCV (84.0-98.0) fL MCH (28.2-33.3) pg MCHC (31.7-36.0) g/dL RDW (11.2-14.1) % Plt Count (150-350) K/uL Neut % (Auto) (45.0-80.0) % Lymph % (Auto) (10.0-50.0) % [place] % (Auto) (2.0-14.0) % Eos % (Auto) (0.0-5.0) % Baso % (Auto) (0.0-2.0) % Neut # (Auto) (1.40-7.00) K/uL Lymph # (Auto) (0.50-3.50) K/uL [place] # (Auto) (0.00-1.00) K/uL Eos # (Auto) (0.00-0.50) K/uL Baso # (Auto) (0.00-0.20) K/uL Sodium 135 L (136-145) mmol/L Potassium 3.9 (3.5-5.1) mmol/L Chloride 98 (98-107) mmol/L Carbon Dioxide 28.7 (21.0-32.0) mmol/L BUN 15 (7-18) mg/dL Creatinine 0.87 (0.51-1.17) mg/dL Est Cr Clr Drug Dosing 84.23 mL/min Estimated GFR (MDRD) > 60 mL/min Glucose 312 H (74-106) mg/dL POC Glucose (65-110) mg/dl Uric Acid 4.1 (2.6-7.2) mg/dL Calcium 9.7 (8.5-10.1) mg/dL Magnesium 1.5 L (1.8-2.4) mg/dL Total Bilirubin 1.3 H (0.2-1.0) mg/dL AST 41 H (15-37) U/L ALT 66 (12-78) U/L Alkaline Phosphatase 190 H (46-116) IU/L Troponin I 0.005 (0.000-0.056) ng/mL NT-Pro-B Natriuret Pep 43 (0-125) pg/mL Total Protein 7.8 (6.4-8.2) g/dL Albumin 3.3 L (3.4-5.0) g/dL JALEEL Results - Last 24 hrs: Microbiology 04/18/19 23:45 Helicobacter pylori Antigen - Final Stool / Feces 04/18/19 12:15 Urine Culture - Final Urine, Midstream NO GROWTH AFTER 2 DAYS Med Orders - Current: Current Medications Acetaminophen (Tylenol) 650 mg PO Q4H PRN PRN Reason: Pain Last Admin: 04/21/19 07:28 Dose: 650 mg Albuterol (Proventil Neb Soln) 2.5 mg INH Q2H PRN PRN Reason: SHORTNESS OF BREATH Albuterol/Ipratropium (Duoneb 3.0-0.5 Mg/3 Ml) 3 ml NEB Q4HRRT PRN PRN Reason: Dyspnea Albuterol/Ipratropium (Duoneb 3.0-0.5 Mg/3 Ml) 3 ml NEB Q6HRRT JANETT Last Admin: 04/21/19 07:18 Dose: 3 ml Aspirin (Halfprin) 81 mg PO DAILY JANETT Last Admin: 04/21/19 07:17 Dose: 81 mg Budesonide (Pulmicort) 0.5 mg NEB BIDRT [facility] Last Admin: 04/21/19 07:18 Dose: 0.5 mg Diazepam (Valium.) 5 mg PO BEDTIME [facility] Last Admin: 04/20/19 20:01 Dose: 5 mg Docusate Sodium (Colace) 100 mg PO DAILY PRN PRN Reason: Constipation Duloxetine HCl (Cymbalta) 30 mg PO DAILY [facility] Last Admin: 04/21/19 07:17 Dose: 30 mg Enoxaparin Sodium (Lovenox) 40 mg SUBCUT Q24H [facility] Last Admin: 04/20/19 17:05 Dose: 40 mg Ferrous Sulfate (Ferrous Sulfate) 325 mg PO DAILY [facility] Last Admin: 04/21/19 07:16 Dose: 325 mg Finasteride (Proscar) 5 mg PO DAILY [facility] Last Admin: 04/21/19 07:17 Dose: 5 mg Folic Acid (Folic Acid) 1 mg PO DAILY [facility] Last Admin: 04/21/19 07:17 Dose: 1 mg Furosemide (Lasix) 40 mg IVPUSH Q8H [facility] Last Admin: 04/21/19 06:03 Dose: 40 mg Gabapentin (Neurontin) 600 mg PO QID PRN PRN Reason: NERVE PAIN Guaifenesin (Mucinex) 600 mg PO BEDTIME [facility] Last Admin: 04/20/19 20:01 Dose: 600 mg Insulin Lispro Protam/Lispro Human (Humalog Mix 75-25) 26 unit SUBCUT QPM@1730 [facility] Last Admin: 04/20/19 17:05 Dose: 26 unit Insulin Lispro Protam/Lispro Human (Humalog Mix 75-25) 0 unit SUBCUT BIDAC [facility] ; Protocol Last Admin: 04/21/19 07:19 Dose: 4 unit Insulin Lispro Protam/Lispro Human (Humalog Mix 75-25) 38 unit SUBCUT DAILY@ 0730 [facility] Last Admin: 04/21/19 07:18 Dose: 38 unit Isosorbide Mononitrate (Imdur) 30 mg PO DAILY [facility] Last Admin: 04/21/19 07:17 Dose: 30 mg Loperamide HCl (Imodium Ad) 2 mg PO Q6H PRN PRN Reason: Diarrhea Last Admin: 04/20/19 20:06 Dose: 2 mg Losartan Potassium (Cozaar) 100 mg PO DAILY [facility] Last Admin: 04/21/19 07:17 Dose: 100 mg Metformin HCl (Glucophage) 1,000 mg PO BIDMEALS [facility] Last Admin: 04/21/19 07:18 Dose: 1,000 mg Metoprolol Succinate (Toprol Xl) 25 mg PO DAILY [facility] Last Admin: 04/21/19 07:16 Dose: 25 mg Pantoprazole Sodium (Protonix) 40 mg PO DAILY [facility] Last Admin: 04/21/19 07:16 Dose: 40 mg Potassium Chloride (Klor-Con M20) 20 meq PO TID [facility] Last Admin: 04/21/19 07:17 Dose: 20 meq Pramipexole Dihydrochloride (Mirapex) 1 mg PO BID [facility] Last Admin: 04/21/19 07:17 Dose: 1 mg Sodium Chloride (Saline Flush) 10 ml FLUSH ASDIRECTED PRN PRN Reason: Keep Vein Open Last Admin: 04/20/19 20:06 Dose: 10 ml Sodium Chloride (Saline Flush) 10 ml FLUSH Q12HR PRN PRN Reason: Keep Vein Open Last Admin: 04/21/19 06:07 Dose: 10 ml Tamsulosin HCl (Flomax) 0.4 mg PO DAILY [facility] Last Admin: 04/21/19 07:17 Dose: 0.4 mg Discontinued Medications Famotidine (Pepcid) 40 mg IVPUSH ONETIME ONE Stop: 04/18/19 12:30 Last Admin: 04/18/19 14:15 Dose: 40 mg Furosemide (Lasix) 60 mg IVPUSH NOW ONE Stop: 04/18/19 13:35 Last Admin: 04/18/19 14:57 Dose: 60 mg Insulin Human Lispro (Humalog) 0 unit SUBCUT QIDACANDBED [facility]; Protocol Last Admin: 04/19/19 07:48 Dose: 4 unit Insulin Human Regular (Humulin R) 10 unit IV ONETIME ONE Stop: 04/18/19 13:35 Last Admin: 04/18/19 14:54 Dose: 10 unit Insulin Human Regular (Humulin R) 10 unit IV ONETIME ONE Stop: 04/19/19 20:18 Last Admin: 04/19/19 20:52 Dose: 10 units Insulin Lispro Protam/Lispro Human (Humalog Mix 75-25) 24 unit SUBCUT [facility] Last Admin: 04/18/19 17:25 Dose: 24 unit Insulin Lispro Protam/Lispro Human (Humalog Mix 75-25) 30 unit SUBCUT DAILY@ 0730 [facility] Last Admin: 04/19/19 07:46 Dose: 30 unit Metformin HCl (Glucophage) 500 mg PO BIDMEALS [facility] Last Admin: 04/19/19 17:21 Dose: 500 mg Metformin HCl (Glucophage) 500 mg PO ONETIME ONE Stop: 04/19/19 20:18 Last Admin: 04/19/19 20:48 Dose: 500 mg Non-Formulary Medication (Folic Acid [Folic Acid]) 0.8 mg PO DAILY JANETT - Exam Quality Assessment: Reports: DVT Prophylaxis (Lovenox). Denies: Supplemental Oxygen, Central Line/PICC, Urine Catheter, Skin Breakdown, Restraints General: Reports: Alert, Oriented, Cooperative HEENT: Reports: Pupils Equal, Pupils Reactive, EOMI, Mucous Membr. Moist/[place], Other (Patient wearing glasses) Neck: Reports: Supple, Trachea Midline, No JVD, No Thyromegaly. Denies: Lymphadenopathy, Carotid Bruit Lungs: Reports: Clear to Auscultation, Normal Respiratory Effort. Denies: Rub Cardiovascular: Reports: Regular Rate, Regular Rhythm, No Murmurs. Denies: Gallops, Rubs GI/Abdominal Exam: Normal Bowel Sounds, Soft, Non-Tender, No Organomegaly, No Distention, No Abnormal Bruit, No Mass, Pelvis Stable, Other (Obese). No: Guarding (Male) Exam: Deferred Rectal (Males) Exam: Deferred Back Exam: Reports: Decreased Range of Motion (Stable in low back secondary to previous surgery), Other (Mild kyphosis). Denies: CVA Tenderness (L), CVA Tenderness (R), Muscle Spasm, Paraspinal Tenderness, Vertebral Tenderness Extremities: Non-Tender, No Pedal Edema, Normal Capillary Refill, Limited Range of Motion (Stable chronic and shoulders bilaterally). No: Elias's Sign Skin: Reports: Ecchymosis (Mild at Lovenox sites) Neurological: Reports: No New Focal Deficit, Other (No clinical orthostasis. Patient using cane for walking) Psy/Mental Status: Reports: Alert, Normal Affect, Normal Mood. Denies: Anxious , Depressed, Agitated, Hallucinations, Withdrawal Symptoms
== END 2019-04-21 11:30 | disposition home health service (06) | DRG 637 ==
LOC: LL.ED 12:15 → LL.MS 14:28
PROVIDERS: ADMIT Family Medicine; ATTEND Family Medicine
DX: E11.65 Type 2 diabetes mellitus with hyperglycemia (principal); I50.43 Acute on chronic combined systolic (congestive) and diastolic (congestive) heart failure; M15.0 Primary generalized (osteo)arthritis; I42.9 Cardiomyopathy, unspecified; Z68.41 Body mass index [BMI] 40.0-44.9, adult; I13.0 Hypertensive heart and chronic kidney disease with heart failure and stage 1 through stage 4 chronic kidney disease, or unspecified chronic kidney disease; H54.7 Unspecified visual loss; H91.90 Unspecified hearing loss, unspecified ear; I48.91 Unspecified atrial fibrillation; E78.00 Pure hypercholesterolemia, unspecified; I25.10 Atherosclerotic heart disease of native coronary artery without angina pectoris; Z51.5 Encounter for palliative care; G47.30 Sleep apnea, unspecified; E78.5 Hyperlipidemia, unspecified; I27.20 Pulmonary hypertension, unspecified; J44.9 Chronic obstructive pulmonary disease, unspecified; K21.9 Gastro-esophageal reflux disease without esophagitis; M19.91 Primary osteoarthritis, unspecified site; G43.909 Migraine, unspecified, not intractable, without status migrainosus; E11.42 Type 2 diabetes mellitus with diabetic polyneuropathy; E88.09 Other disorders of plasma-protein metabolism, not elsewhere classified; E83.42 Hypomagnesemia; F03.90 Unspecified dementia, unspecified severity, without behavioral disturbance, psychotic disturbance, mood disturbance, and anxiety; E66.9 Obesity, unspecified; N18.3 Chronic kidney disease, stage 3 (moderate); E11.22 Type 2 diabetes mellitus with diabetic chronic kidney disease; F41.8 Other specified anxiety disorders; Z86.010 Personal history of colon polyps; Z95.0 Presence of cardiac pacemaker; R79.89 Other specified abnormal findings of blood chemistry; R41.0 Disorientation, unspecified; Z88.8 Allergy status to other drugs, medicaments and biological substances; Z79.82 Long term (current) use of aspirin; Z79.4 Long term (current) use of insulin; Z79.899 Other long term (current) drug therapy; Z87.891 Personal history of nicotine dependence
CPT/HCPCS: 36415; 71045; 80048; 80053; 80061; 81001; 82272; 82550; 82553; 82607; 82728; 82962; 83036; 83540; 83550; 83605; 83735; 83880; 84100; 84443; 84484; 84550; 85025; 85379; 85610; 85730; 87086; 87338; 93005; 94640; 96374; 96375; 99285-25; A9270-GY; J1650; J1815; J1815-GY; J1940; J3490; J7620-GY

== ENCOUNTER 2020-12-20 11:43 | Emergency (ER) | payer MEDICARE, OTHER ==
[2020-12-20 11:57] VITALS: BP 141/75; PULSE 66
--- NOTE | 2020-12-20 12:14 | EDM.PDOC ---
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 observe closely by his regular provider. The patient did get his initial COVID-19 immunization yesterday without complications. (5) Hypertension SNOMED Code(s): 56131937 Code(s): I10 - ESSENTIAL (PRIMARY) HYPERTENSION Status: Chronic Priority: Medium Current Visit: No Annotation/Comment:: Blood pressure is somewhat elevated in the emergency room likely secondary to his discomfort. Otherwise his blood pressures have been stable by history with continued close observation by his regular provider. Qualifiers: Hypertension type: essential hypertension Qualified Code(s): I10 - Essential (primary) hypertension (6) Mixed anxiety depressive disorder SNOMED Code(s): 263720122 Code(s): F41.8 - OTHER SPECIFIED ANXIETY DISORDERS Status: Chronic Priority: Medium Current Visit: No Annotation/Comment:: Stable by history. (7) Osteoarthritis SNOMED Code(s): 238684718 Code(s): M19.90 - UNSPECIFIED OSTEOARTHRITIS, UNSPECIFIED SITE Status: Chronic Priority: Medium Current Visit: No Annotation/Comment:: His osteoarthritis has otherwise been stable by history with no other evidence of injuries. 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 Note previous echocardiogram on 03/06/2020 showing an excellent ejection fraction of 55-60%. Continue to observe closely by his regular provider. Qualifiers: Heart failure type: combined systolic and diastolic Heart failure chronicity: acute on chronic Qualified Code(s): I50.43 - Acute on chronic combined systolic (congestive) and diastolic (congestive) heart failure - Problem List Review Problem List Initiated/Reviewed/Updated: Yes - My Orders Last 24 Hours: My Active Orders 12/20/20 12:14 Fingers Fourth Digit Rt F8 [CR] Stat Obtain Past Medical Record [OM.PC] Routine 12/20/20 12:43 Durable Medical Equipment for Discharge [DME for Discharge] [COMM] Routine - Assessment/Plan Last 24 Hours: My Active Orders 12/20/20 12:14 Fingers Fourth Digit Rt F8 [CR] Stat Obtain Past Medical Record [OM.PC] Routine 12/20/20 12:43 Durable Medical Equipment for Discharge [DME for Discharge] [COMM] Routine Assessment:: As above Plan: As above. Extensive precautions were given to the patient and his neighbor, who are in agreement with the treatment plan. See Patient Instructions for further treatment and plan.
[2020-12-20] MEDS: Bacitracin/Neomycin/Polymyxin B Oint 0.9 GM U/D Packet TOP ONE (13:23)
== END 2020-12-20 13:00 | disposition home or self-care (01) ==
LOC: LL.ED 11:43
DX: S62.664A Nondisplaced fracture of distal phalanx of right ring finger, initial encounter for closed fracture (principal); I48.91 Unspecified atrial fibrillation; I25.10 Atherosclerotic heart disease of native coronary artery without angina pectoris; E78.00 Pure hypercholesterolemia, unspecified; I13.0 Hypertensive heart and chronic kidney disease with heart failure and stage 1 through stage 4 chronic kidney disease, or unspecified chronic kidney disease; I50.9 Heart failure, unspecified; J44.9 Chronic obstructive pulmonary disease, unspecified; K21.9 Gastro-esophageal reflux disease without esophagitis; M19.90 Unspecified osteoarthritis, unspecified site; E11.42 Type 2 diabetes mellitus with diabetic polyneuropathy; E11.51 Type 2 diabetes mellitus with diabetic peripheral angiopathy without gangrene; N18.9 Chronic kidney disease, unspecified; E11.21 Type 2 diabetes mellitus with diabetic nephropathy; E11.22 Type 2 diabetes mellitus with diabetic chronic kidney disease; F41.8 Other specified anxiety disorders; E66.9 Obesity, unspecified; F03.90 Unspecified dementia, unspecified severity, without behavioral disturbance, psychotic disturbance, mood disturbance, and anxiety; Z88.8 Allergy status to other drugs, medicaments and biological substances; Z79.82 Long term (current) use of aspirin; Z79.84 Long term (current) use of oral hypoglycemic drugs; Z79.899 Other long term (current) drug therapy; Z87.891 Personal history of nicotine dependence; Z68.37 Body mass index [BMI] 37.0-37.9, adult; W23.0XXA Caught, crushed, jammed, or pinched between moving objects, initial encounter; Y92.009 Unspecified place in unspecified non-institutional (private) residence as the place of occurrence of the external cause
CPT/HCPCS: 73140-F8; 99283; 99284

== ENCOUNTER 2021-05-01 15:21 | Emergency (ER) | payer MEDICARE, OTHER ==
[2021-05-01] MEDS ORDERED: Lactated Ringers 1,000 ML IV ONE (15:37)
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
[2021-05-01 15:57] LABS: CHLORIDE,CL 105 mmol/L (98-107); SODIUM,NA 140 mmol/L (136-145)
--- NOTE | 2021-05-01 16:08 | PCM.EKG ---
#1 Interpretation EKG Date: 05/01/21 Time: 15:45 Rhythm: NSR Rate (Beats/Min): 60 [place]: LAD-Left [place] Deviation P-Wave: Present QRS: LBBB ST-T: Normal QT: Normal Comparison: Change From Previous EKG (previous bifasicular block. Now just LBBB)
[2021-05-01 17:16] VITALS: BP 131/59; PULSE 80
== END 2021-05-01 17:48 | disposition home or self-care (01) ==
LOC: LL.ED 15:21
DX: T67.5XXA Heat exhaustion, unspecified, initial encounter (principal); E86.0 Dehydration; I48.91 Unspecified atrial fibrillation; E11.22 Type 2 diabetes mellitus with diabetic chronic kidney disease; I13.0 Hypertensive heart and chronic kidney disease with heart failure and stage 1 through stage 4 chronic kidney disease, or unspecified chronic kidney disease; N18.9 Chronic kidney disease, unspecified; I50.9 Heart failure, unspecified; K21.9 Gastro-esophageal reflux disease without esophagitis; E11.21 Type 2 diabetes mellitus with diabetic nephropathy; E66.9 Obesity, unspecified; I25.10 Atherosclerotic heart disease of native coronary artery without angina pectoris; Z68.30 Body mass index [BMI] 30.0-30.9, adult; Z79.82 Long term (current) use of aspirin; Z79.84 Long term (current) use of oral hypoglycemic drugs; Z79.899 Other long term (current) drug therapy; Z20.822 Contact with and (suspected) exposure to COVID-19
CPT/HCPCS: 36415; 71046; 80053; 81001; 83605; 84484; 85025; 86140; 87040; 93005; 99285-25; J7120; U0002

== ENCOUNTER 2021-09-30 11:35 | Emergency (ER) | payer MEDICARE, OTHER ==
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
[2021-09-30 14:01] VITALS: BP 186/84; PULSE 60
== END 2021-09-30 13:35 | disposition home or self-care (01) ==
LOC: LL.ED 11:35
DX: S09.90XA Unspecified injury of head, initial encounter (principal); S62.307A Unspecified fracture of fifth metacarpal bone, left hand, initial encounter for closed fracture; S00.81XA Abrasion of other part of head, initial encounter; M79.622 Pain in left upper arm; I48.91 Unspecified atrial fibrillation; I25.10 Atherosclerotic heart disease of native coronary artery without angina pectoris; E78.00 Pure hypercholesterolemia, unspecified; J44.9 Chronic obstructive pulmonary disease, unspecified; K21.9 Gastro-esophageal reflux disease without esophagitis; I13.0 Hypertensive heart and chronic kidney disease with heart failure and stage 1 through stage 4 chronic kidney disease, or unspecified chronic kidney disease; E11.22 Type 2 diabetes mellitus with diabetic chronic kidney disease; N18.9 Chronic kidney disease, unspecified; I50.9 Heart failure, unspecified; E11.21 Type 2 diabetes mellitus with diabetic nephropathy; M06.9 Rheumatoid arthritis, unspecified; F03.90 Unspecified dementia, unspecified severity, without behavioral disturbance, psychotic disturbance, mood disturbance, and anxiety; E66.9 Obesity, unspecified; Z68.36 Body mass index [BMI] 36.0-36.9, adult; Z88.8 Allergy status to other drugs, medicaments and biological substances; Z79.82 Long term (current) use of aspirin; Z79.84 Long term (current) use of oral hypoglycemic drugs; Z79.899 Other long term (current) drug therapy; W01.198A Fall on same level from slipping, tripping and stumbling with subsequent striking against other object, initial encounter; Y92.830 Public park as the place of occurrence of the external cause; Y99.0 Civilian activity done for income or pay
CPT/HCPCS: 29125; 70450; 73130-LT; 99283; 99284-25

== ENCOUNTER 2022-01-09 15:58 | Emergency (ER) | payer MEDICARE, OTHER ==
[2022-01-09] MEDS ORDERED: Heparin Sodium/0.45% NaCl 500 ML IV STA (16:23)
[2022-01-09] MEDS ORDERED: Heparin Sodium 5,000 Units/ML Vial IVPUSH ONE (16:23)
[2022-01-09] MEDS ORDERED: Metoprolol Tartrate 25 MG Tab PO ONE (16:30)
[2022-01-09] MEDS ORDERED: Aspirin 81 MG Tab.Chew PO ONE (16:30)
[2022-01-09] MEDS: Sodium Chloride 0.9% 10 ML Syringe FLUSH PRN ×2 (16:31→17:29)
[2022-01-09] MEDS ORDERED: Nitroglycerin 0.4 MG Tab.SL SL ONE (16:41)
[2022-01-09 17:01] LABS: PTT,PARTIAL THROMBOPLSTIN TIME 26.5 SEC (23.6-29.8)
[2022-01-09] MEDS ORDERED: Morphine 10 MG/ML Syringe IVPUSH ONE (17:03)
[2022-01-09] MEDS ORDERED: Ondansetron 4 MG/2 ML SDV IVPUSH ONE (17:23)
[2022-01-09 19:00] VITALS: BP 129/70; PULSE 66
== END 2022-01-09 18:25 ==
LOC: LL.ED 15:58
DX: I21.4 Non-ST elevation (NSTEMI) myocardial infarction (principal); I25.10 Atherosclerotic heart disease of native coronary artery without angina pectoris; E78.00 Pure hypercholesterolemia, unspecified; I48.91 Unspecified atrial fibrillation; E11.22 Type 2 diabetes mellitus with diabetic chronic kidney disease; J44.9 Chronic obstructive pulmonary disease, unspecified; I13.0 Hypertensive heart and chronic kidney disease with heart failure and stage 1 through stage 4 chronic kidney disease, or unspecified chronic kidney disease; N18.9 Chronic kidney disease, unspecified; I50.9 Heart failure, unspecified; K21.9 Gastro-esophageal reflux disease without esophagitis; E66.9 Obesity, unspecified; Z68.38 Body mass index [BMI] 38.0-38.9, adult; Z95.0 Presence of cardiac pacemaker; Z88.8 Allergy status to other drugs, medicaments and biological substances; Z79.82 Long term (current) use of aspirin; Z79.899 Other long term (current) drug therapy
CPT/HCPCS: 36415; 71045; 83605; 85610; 85730; 93010; 96365; 96366; 96375; 99285; 99285-25; A9270-GY; J1644; J2270; J2405

== ENCOUNTER 2022-04-03 02:27 | Emergency (ER) | payer MEDICARE, OTHER ==
[2022-04-03 02:36] VITALS: BP 164/71; PULSE 70
== END 2022-04-03 03:10 | disposition home or self-care (01) ==
LOC: LL.ED 02:27
DX: G25.81 Restless legs syndrome (principal); I25.10 Atherosclerotic heart disease of native coronary artery without angina pectoris; I11.0 Hypertensive heart disease with heart failure; I50.9 Heart failure, unspecified; E78.00 Pure hypercholesterolemia, unspecified; J44.9 Chronic obstructive pulmonary disease, unspecified; K21.9 Gastro-esophageal reflux disease without esophagitis; E66.9 Obesity, unspecified; Z68.30 Body mass index [BMI] 30.0-30.9, adult; Z91.09 Other allergy status, other than to drugs and biological substances; Z79.899 Other long term (current) drug therapy; Z79.82 Long term (current) use of aspirin; Z79.84 Long term (current) use of oral hypoglycemic drugs; Z76.0 Encounter for issue of repeat prescription
CPT/HCPCS: 99281; 99284; A9270-GY

== ENCOUNTER 2023-09-16 10:30 | Emergency (ER) | payer MEDICARE ==
[2023-09-16 10:41] VITALS: PULSE 66
[2023-09-16] MEDS: Sodium Chloride 0.9% 500 ML IV SCH (12:25)
[2023-09-16] MEDS: Sodium Chloride 0.9% 10 ML Syringe FLUSH PRN (12:30)
[2023-09-16 12:52] LABS: ANION GAP 8.2 meq/L (7-15); CALCIUM 9.5 mg/dL (8.5-10.1); CARBON DIOXIDE,CO2 28.8 mmol/L (21.0-32.0); CREATININE 0.71 mg/dL (0.51-1.17); EST CRCL DRUG DOSING (CG) 95.43 mL/min; POTASSIUM,K 3.9 mmol/L (3.5-5.1)
[2023-09-16 14:02] VITALS: BP 180/84
== END 2023-09-16 14:30 | disposition home or self-care (01) ==
LOC: LL.ED 10:30
DX: I13.0 Hypertensive heart and chronic kidney disease with heart failure and stage 1 through stage 4 chronic kidney disease, or unspecified chronic kidney disease (principal); I50.9 Heart failure, unspecified; N18.9 Chronic kidney disease, unspecified; E11.40 Type 2 diabetes mellitus with diabetic neuropathy, unspecified; J44.9 Chronic obstructive pulmonary disease, unspecified; I25.10 Atherosclerotic heart disease of native coronary artery without angina pectoris; E11.51 Type 2 diabetes mellitus with diabetic peripheral angiopathy without gangrene; E78.00 Pure hypercholesterolemia, unspecified; Z95.0 Presence of cardiac pacemaker; Z86.73 Personal history of transient ischemic attack (TIA), and cerebral infarction without residual deficits; Z79.84 Long term (current) use of oral hypoglycemic drugs; Z79.899 Other long term (current) drug therapy; Z79.82 Long term (current) use of aspirin; Z91.048 Other nonmedicinal substance allergy status
CPT/HCPCS: 36415; 80048; 83880; 84484; 93005; 96360; 99283-25; J3490; J7040

== ENCOUNTER 2023-09-30 20:50 | Emergency (ER) | payer MEDICARE, MEDICAID ==
[2023-09-30 21:21] VITALS: BP 153/84; PULSE 81
[2023-09-30 21:22] LABS: BASOPHILS ABSOLUTE AUTO 0.01 K/uL (0.00-0.20); BASOPHILS PERCENT AUTO 0.2 % (0.0-2.0); EOSINOPHILS ABSOLUTE AUTO 0.11 K/uL (0.00-0.50); EOSINOPHILS PERCENT AUTO 2.6 % (0.0-5.0); HEMATOCRIT 36.6 % (39.0-49.0); HEMOGLOBIN 12.3 g/dL (13.1-16.8); LYMPHOCYTES ABSOLUTE AUTO 1.16 K/uL (0.50-3.50); LYMPHOCYTES PERCENT AUTO 27.2 % (10.0-50.0); MEAN CORPUSCULAR HEMOGLOBIN 33.1 pg (28.2-33.3); MEAN CORPUSCULAR HGB CONC 33.6 g/dL (31.7-36.0); MEAN CORPUSCULAR VOLUME 98.4 fL (84.0-98.0); MONOCYTES ABSOLUTE AUTO 0.57 K/uL (0.00-1.00); MONOCYTES PERCENT AUTO 13.4 % (2.0-14.0); NEUTROPHILS ABSOLUTE AUTO 2.41 K/uL (1.40-7.00); NEUTROPHILS PERCENT AUTO 56.6 % (45.0-80.0); PLATELET COUNT,PLT 88 K/uL (150-350); RED BLOOD CELL COUNT 3.72 M/uL (4.33-5.41); RED CELL DISTRIBUTION WIDTH 13.4 % (11.2-14.1); WHITE BLOOD CELL COUNT,WBC 4.3 K/uL (4.0-10.2)
[2023-09-30 21:49] LABS: ALANINE AMINOTRANSFERASE,ALT 48 U/L (12-78); ALBUMIN 3.2 g/dL (3.4-5.0); ALKALINE PHOSPHATASE 116 IU/L (46-116); ANION GAP 9.5 meq/L (7-15); ASPARTATE AMNIOTRANSFERASE,AST 36 U/L (15-37); BILIRUBIN TOTAL 0.7 mg/dL (0.2-1.0); BLOOD UREA NITROGEN,BUN 15 mg/dL (7-18); CALCIUM 8.9 mg/dL (8.5-10.1); CARBON DIOXIDE,CO2 25.5 mmol/L (21.0-32.0); CHLORIDE,CL 106 mmol/L (98-107); CREATININE 0.84 mg/dL (0.51-1.17); ESTIMATED GFR 93 mL/min (>=60); GLUCOSE RANDOM 179 mg/dL (70-99); POTASSIUM,K 3.7 mmol/L (3.5-5.1); PRO B-TYPE NATRIUR PEPT,BNPPRO 1055 pg/mL (0-125); PROTEIN TOTAL,TP 6.6 g/dL (6.4-8.2); SODIUM,NA 141 mmol/L (136-145)
[2023-09-30 21:53] LABS: APPEARANCE,URINE SLIGHTLY CLOUDY; BILIRUBIN,URINE NEGATIVE (NEGATIVE); COLOR,URINE DARK YELLOW; GLUCOSE,URINE 100 mg/dL (NEGATIVE); KETONES,URINE TRACE mg/dL (NEGATIVE); LEUKOCYTE ESTERASE,URINE NEGATIVE (NEGATIVE); NITRITE,URINE NEGATIVE (NEGATIVE); OCCULT BLOOD,URINE NEGATIVE (NEGATIVE); PH,URINE 5.5 (5.0-9.0); PROTEIN,URINE 30 mg/dL (NEGATIVE); UROBILINOGEN,URINE 0.2 E.U./dL (0.2-1.0)
[2023-09-30 21:59] LABS: BACTERIA,URINE RARE /HPF (NONE TO FEW); EPITHELIAL CELLS,URINE RARE /LPF; MUCUS,URINE MODERATE /LPF (NEGATIVE); RBC,URINE 0-5 /HPF; WBC,URINE 0-5 /HPF
[2023-09-30] MEDS: traMADol 50 MG Tab PO ONE (22:30)
[2023-09-30] MEDS: Take Home: traMADol 50 MG, 4 Tab Pack PO ONE (22:31)
[2023-09-30] MEDS: Amitriptyline 25 MG Tab PO ONE (22:43)
== END 2023-09-30 23:15 | disposition home or self-care (01) ==
LOC: LL.ED 20:50
DX: G25.81 Restless legs syndrome (principal); R60.0 Localized edema; E11.42 Type 2 diabetes mellitus with diabetic polyneuropathy; I25.10 Atherosclerotic heart disease of native coronary artery without angina pectoris; E78.00 Pure hypercholesterolemia, unspecified; I25.2 Old myocardial infarction; K21.9 Gastro-esophageal reflux disease without esophagitis; E11.22 Type 2 diabetes mellitus with diabetic chronic kidney disease; E11.51 Type 2 diabetes mellitus with diabetic peripheral angiopathy without gangrene; I13.0 Hypertensive heart and chronic kidney disease with heart failure and stage 1 through stage 4 chronic kidney disease, or unspecified chronic kidney disease; I50.30 Unspecified diastolic (congestive) heart failure; N18.9 Chronic kidney disease, unspecified; M19.90 Unspecified osteoarthritis, unspecified site; E66.9 Obesity, unspecified; J44.9 Chronic obstructive pulmonary disease, unspecified; Z79.82 Long term (current) use of aspirin; Z79.84 Long term (current) use of oral hypoglycemic drugs; Z79.899 Other long term (current) drug therapy; Z88.8 Allergy status to other drugs, medicaments and biological substances; Z95.0 Presence of cardiac pacemaker
CPT/HCPCS: 36415; 80053; 81001; 83735; 83880; 85025; 99283; 99284; A9270-GY

== ENCOUNTER 2024-05-16 18:12 | Emergency (ER) | payer OTHER, MEDICARE, MEDICAID ==
[2024-05-16] MEDS: Diphtheria,Pertussis(Acell),Tetanus Vaccine 0.5 ML Syringe IM ONE (18:52)
[2024-05-16 18:55] VITALS: BP 140/84; PULSE 81
== END 2024-05-16 19:15 | disposition home or self-care (01) ==
LOC: LL.ED 18:12
DX: S51.811A Laceration without foreign body of right forearm, initial encounter (principal); S49.91XA Unspecified injury of right shoulder and upper arm, initial encounter; I11.0 Hypertensive heart disease with heart failure; I50.9 Heart failure, unspecified; I25.10 Atherosclerotic heart disease of native coronary artery without angina pectoris; J44.9 Chronic obstructive pulmonary disease, unspecified; E11.40 Type 2 diabetes mellitus with diabetic neuropathy, unspecified; E66.9 Obesity, unspecified; Z23 Encounter for immunization; Z79.899 Other long term (current) drug therapy; Z79.4 Long term (current) use of insulin; Z79.82 Long term (current) use of aspirin; W20.8XXA Other cause of strike by thrown, projected or falling object, initial encounter
CPT/HCPCS: 73080-RT; 90471; 90715; 99283-25; 99284

== ENCOUNTER 2024-09-19 18:07 | Emergency (ER) | payer OTHER, MEDICARE, MEDICAID ==
[2024-09-19] MEDS: Lidocaine 1% 5 ML VIAL INJECT ONE (19:01)
[2024-09-19] MEDS: Bacitracin Oint 1 GM U/D Packet TOP ONE (19:07)
[2024-09-19 19:33] VITALS: BP 127/61; PULSE 61
[2024-09-19] MEDS: Take Home: Amoxicillin 875 MG Tab, 6 Tab Pack PO ONE (19:53)
== END 2024-09-19 20:00 | disposition home or self-care (01) ==
LOC: LL.ED 18:07
DX: S01.511A Laceration without foreign body of lip, initial encounter (principal); S51.811A Laceration without foreign body of right forearm, initial encounter; I13.0 Hypertensive heart and chronic kidney disease with heart failure and stage 1 through stage 4 chronic kidney disease, or unspecified chronic kidney disease; I50.9 Heart failure, unspecified; N18.9 Chronic kidney disease, unspecified; I25.10 Atherosclerotic heart disease of native coronary artery without angina pectoris; E78.00 Pure hypercholesterolemia, unspecified; J44.9 Chronic obstructive pulmonary disease, unspecified; E11.22 Type 2 diabetes mellitus with diabetic chronic kidney disease; E66.9 Obesity, unspecified; Z95.0 Presence of cardiac pacemaker; Z79.899 Other long term (current) drug therapy; Z79.1 Long term (current) use of non-steroidal anti-inflammatories (NSAID); Z79.82 Long term (current) use of aspirin; W26.8XXA Contact with other sharp object(s), not elsewhere classified, initial encounter
CPT/HCPCS: 12011; 99282; 99283; A9270-GY; J3490

== ENCOUNTER 2025-03-15 17:06 | Emergency (ER) | payer MEDICARE, OTHER, MEDICAID ==
[2025-03-15 17:19] LABS: BASOPHILS ABSOLUTE AUTO 0.01 K/uL (0.00-0.20); BASOPHILS PERCENT AUTO 0.2 % (0.0-2.0); EOSINOPHILS ABSOLUTE AUTO 0.11 K/uL (0.00-0.50); EOSINOPHILS PERCENT AUTO 2.1 % (0.0-5.0); HEMATOCRIT 40.5 % (39.0-49.0); HEMOGLOBIN 13.8 g/dL (13.1-16.8); LYMPHOCYTES PERCENT AUTO 24.3 % (10.0-50.0); MEAN CORPUSCULAR HEMOGLOBIN 32.5 pg (28.2-33.3); MEAN CORPUSCULAR HGB CONC 34.1 g/dL (31.7-36.0); MEAN CORPUSCULAR VOLUME 95.5 fL (84.0-98.0); MONOCYTES ABSOLUTE AUTO 0.62 K/uL (0.00-1.00); MONOCYTES PERCENT AUTO 11.6 % (2.0-14.0); NEUTROPHILS ABSOLUTE AUTO 3.31 K/uL (1.40-7.00); NEUTROPHILS PERCENT AUTO 61.8 % (45.0-80.0); PLATELET COUNT,PLT 107 K/uL (150-350); RED BLOOD CELL COUNT 4.24 M/uL (4.33-5.41); WHITE BLOOD CELL COUNT,WBC 5.4 K/uL (4.0-10.2)
[2025-03-15] MEDS ORDERED: Rocuronium 100 MG/10 ML MDV ONE (17:22)
[2025-03-15] MEDS ORDERED: fentaNYL 100 MCG/2 ML SDV IVPUSH ONE (17:33)
[2025-03-15] MEDS ORDERED: Etomidate 2 MG/ML 10 ML SDV IVPUSH ONE ×2 (17:34→18:14)
[2025-03-15] MEDS ORDERED: Rocuronium 100 MG/10 ML MDV IVPUSH ONE ×2 (17:35→18:14)
[2025-03-15 17:38] LABS: INR 1.1 (0.9-1.1); PROTHROMBIN TIME 11.4 SEC (9.0-11.1); PTT,PARTIAL THROMBOPLSTIN TIME 25.4 SEC (23.8-34.4)
[2025-03-15] MEDS ORDERED: Midazolam 1 MG/ML 2 ML SDV IV ONE (17:46)
[2025-03-15 17:51] LABS: ALANINE AMINOTRANSFERASE,ALT 39 U/L (12-78); ALBUMIN 3.6 g/dL (3.4-5.0); ALKALINE PHOSPHATASE 109 IU/L (46-116); ANION GAP 7.3 meq/L (7-15); ASPARTATE AMNIOTRANSFERASE,AST 39 U/L (15-37); BILIRUBIN TOTAL 1.2 mg/dL (0.2-1.0); BLOOD UREA NITROGEN,BUN 14 mg/dL (7-18); CALCIUM 9.2 mg/dL (8.5-10.1); CARBON DIOXIDE,CO2 29.7 mmol/L (21.0-32.0); CHLORIDE,CL 105 mmol/L (98-107); CREATININE 1.02 mg/dL (0.51-1.17); ESTIMATED GFR 78 mL/min (>=60); GLUCOSE RANDOM 173 mg/dL (70-99); LIPASE 33 U/L (16-77); POTASSIUM,K 4.1 mmol/L (3.5-5.1); PRO B-TYPE NATRIUR PEPT,BNPPRO 177 pg/mL (0-125); SODIUM,NA 142 mmol/L (136-145)
[2025-03-15] MEDS ORDERED: levETIRAcetam 500 MG/5 ML SDV IVPUSH ONE (17:56)
[2025-03-15] MEDS ORDERED: Midazolam 1 MG/ML 2 ML SDV IVPUSH ONE (18:15)
[2025-03-15] MEDS ORDERED: Sodium Chloride 0.9% 10 ML Syringe FLUSH PRN (18:16)
[2025-03-15] MEDS ORDERED: Lidocaine 4% Top Soln 50 ML Bottle MUCMEM ONE (18:40)
[2025-03-15] MEDS ORDERED: Naloxone 0.4 MG/ML SDV IVPUSH PRN (18:41)
[2025-03-15] MEDS ORDERED: fentaNYL 50 MCG/ML SDV IVPUSH ONE (18:41)
== END 2025-03-15 18:30 ==
LOC: LL.ED 17:06
DX: S30.1XXA Contusion of abdominal wall, initial encounter (principal); Z79.82 Long term (current) use of aspirin; Z79.899 Other long term (current) drug therapy; W19.XXXA Unspecified fall, initial encounter
CPT/HCPCS: 31500; 36415; 71045; 72170; 80053; 83690; 83880; 84484; 85025; 85610; 85730; 96374; 99291-25; A9270-GY; G0390; J1953; J2250; J3010; J3490